=== PATIENT | male | born 1945 | race Two or more races ===

== ENCOUNTER 2025-02-03 10:01 | Inpatient (IN) | payer OTHER ==
[~2025-02-03] VITALS: Ht 170.2 cm; Wt 67.1 kg
[~2025-02-03 10:01] MED LIST: AMLO1TAB23 PO; FAMO20TA10 GT; GLIP10TA9 PO; LISI2.5T47 PO; MELO15TA29 PO; METF-370 PO; SILD100T PO; TURM500C3 OR
[2025-02-03] MEDS: ceFAZolin 2 GM/D5W50ml 50 ML IV ONE (10:05)
[2025-02-03] MEDS ORDERED: ETOMIDATE (2MG/ML) 20ML VIAL IV ONE (11:22)
[2025-02-03] MEDS: levoFLOXacin 500MG 100 ML IV ONE (11:57)
[2025-02-03] MEDS: TRANEXAMIC ACID 10 ML ONE ×2 (11:57→11:58)
[2025-02-03] MEDS ORDERED: HYDROmorphone HCL 2 MG/ML VL/or syr ONE (12:32)
[2025-02-03] MEDS ORDERED: fentaNYL CITRATE 100 MCG/2 ML VL ONE ×2 (12:32→15:56)
[2025-02-03] MEDS ORDERED: MIDAZOLAM HCL 2MG/2ML 2ml VIAL (1mg/ml) ONE (12:32)
[2025-02-03] MEDS ORDERED: fentaNYL CITRATE 5 ML ONE (12:32)
--- NOTE | 2025-02-03 12:41 | DVHHP2 ---
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 History of Present Illness Home Meds Reported Medications Sildenafil Citrate (Viagra) 100 Mg Tab, 100 MG PO PRN, TAB 01/30/25 Curcuma Longa (Turmeric) Extra (TURMERIC) 500 Mg Cap, 1500 MG OR BID, CAP 01/30/25 Lisinopril (Lisinopril) 2.5 Mg Tab, 1.5 MG PO DAILY, TAB 01/30/25 Meloxicam (Meloxicam) 15 Mg Tab, 15 MG PO DAILY, TAB 01/30/25 Amlodipine Besylate (Amlodipine Besylate) 10 Mg Tab, 10 MG PO DAILY, TAB 01/30/25 Famotidine (PEPCID TABLET) 20 Mg Tb, 20 MG GT DAILY, TAB 01/30/25 Metformin Hydrochloride (Metformin Hcl) 500 Mg Tab, 500 MG PO DAILY, TAB 01/30/25 Glipizide (Glipizide) 10 Mg Tab, 10 MG PO BID, TAB 01/30/25 Timing/Duration of Neck Pain: Getting worse Quality of Neck Pain: Aching, Burning, Cramping Associated Symptoms of Neck Pa: Muscle spasms Timing/Duration of Back Pain: Constant, Getting worse Back Pain Location: Lumbar spine Back Pain Radiation: Thigh area Method of Injury/Prior Factors: Unknown Modifying Factors for Back Isabela: None Associated Symptoms of Back Pa: Tingling in legs, Tingling in feet, Sensory loss, Motor loss Review of Systems Constitutional: No symptom reported Ears, Nose, & Throat: No symptom reported Eyes: No symptom reported Pulmonary/Respiratory: No symptom reported Cardiovascular: No symptom reported Gastrointestinal: No symptom reported Genitourinary: No symptom reported Musculoskeletal: Back pain, Muscle pain, Muscle stiffness Skin: No symptom reported Psychiatric: No symptom reported Endocrine: No symptom reported H&P Exam Vital Signs Vital Signs Date Time Temp Pulse Resp B/P (MAP) Pulse Ox O2 Delivery O2 Flow Rate FiO2 02/03/25 10:10 97.8 65 16 122/84 (97) 98 97.8 General Appeara: Well developed, Well nourished, Normal Appearance Head Exam: Normal inspection Neck Exam: Normal inspection, Non-tender, Normal alignment Eye Exam: bilateral eye Normal inspection, bilateral eye PERRL, bilateral eye EOMI Ear Exam: bilateral ear Auricle normal, bilateral ear Canal normal, bilateral ear TM normal Nasal Exam: Normal inspection Mouth: Normal Inspection Pulmonary/Respiratory: Normal inspection, Normal breath sounds, Chest non- tender, Lungs clear Cardiovascular/Chest: Normal inspection, Regular rate, Normal Rhythm Abdominal Exam: Normal bowel sounds, Soft, No tenderness, No hepatospenomegaly, No masses Back Exam: Muscle spasm, Vertebral tenderness Pelvic Exam: Not done, External exam normal, Bimanual exam normal, Speculum exam normal Male Genital Exam: Not done Shoulder Exam: Normal inspection, Non-tender, Normal ROM Elbow/Forearm Exam: Normal inspection, Non-tender, Normal ROM Wrist Exam: Normal inspection, Non-tender, Normal ROM Hand Exam: Normal inspection, Non-tender, Normal ROM Hip exam: Normal inspection, Non-tender, Normal range of motion Legs: bilateral leg non-tender, bilateral leg normal inspection, bilateral leg normal range of motion, bilateral leg no evidence of injury Knees: bilateral knee non-tender, bilateral knee normal inspection, bilateral knee normal range of motion, bilateral knee no evidence of injury Ankle Exam: bilateral ankle Normal inspection, bilateral ankle Non-tender, bilateral ankle Normal range of motion, bilateral ankle No evidence of injury Foot: bilateral foot non-tender, bilateral foot normal inspection, bilateral foot normal range of motion, bilateral foot no evidence of injury Tendon/ Neuro: Normal sensation, Normal motor function, Normal tendon functions, Motor deficit, Sensory deficit [employer] Exam: Normal hearing, Normal speech, PERRL Motor/Sensory: Sensory deficit, Weak motor strength RLE, Weak motor strength LLE Deep Tendon Ref: All intact Neuro/Mental St: Alert Appearance: Appropriate appearance Eye contact/ Speech: Cooperative Thoughts/Psych: Normal thought pattern Coordination/Gait: Abnormal gait Lymphatic: Normal inspection Labs/Xrays Labs Test 02/03/25 10:27 Range/Units POC Glucose 117 H 70-106 mg/dl Assessment/Plan Primary Diagnosis 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
[2025-02-03] MEDS ORDERED: PROPOFOL 10 MG/ML 20 ML IV ONE (12:49)
[2025-02-03] MEDS ORDERED: DexAMETHasone SOD PHOS 10MG/1ML VIAL INJ ONE (12:49)
[2025-02-03] MEDS: GELATIN 1 SPONGE SIZE 100 TOP ONE (15:50)
[2025-02-03] MEDS: D5W/SOD CHLO 0.9% 1,000 ML IV SCH (17:00)
[2025-02-03] MEDS ORDERED: NITROGLYCERIN 0.4 MG SL TAB SL PRN (17:00)
[2025-02-03] MEDS ORDERED: MORPHINE SULFATE INJ 2 MG/ml SYRG IV PRN (17:00)
[2025-02-03] MEDS: THROMBIN (BOVINE) 5000 UNIT SOL VIAL ONE (17:20)
--- NOTE | 2025-02-03 17:29 | DVHOP2 ---
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 These include but are not limited to complications of anesthesia, postoperative infection, incomplete relief of symptoms, recurrence of symptoms, damage to blood vessels, nerves and tendons, deep venous thrombosis, pulmonary embolism and possible need for repeat surgery in the future. Name of Procedure Performed see detailed note Procedure Details Procedure Details: Pre-op Diagnosis: Lumbar Degenerative Disk Disease and Lumbar Spinal Stenosis with L3/4 degenerative scoliosis and L4/5 spondylolisthesis causing Incapacitating back pain, radiculopathy and progressive neurologic deficit Post-op Diagnosis: Lumbar Degenerative Disk Disease and Lumbar Spinal Stenosis with L3/4 degenerative scoliosis and L4/5 spondylolisthesis causing Incapacitating back pain, radiculopathy and progressive neurologic deficit Procedure: Lumbar 5 laminectomy with Lumbar 5 foraminotomies and facetectomies to decompress central canal and Lumbar 5 nerve roots Lumbar 4 laminectomy with Lumbar 4 foraminotomies and facetectomies to decompress central canal and Lumbar 4 nerve roots Lumbar 3 laminectomy with Lumbar 3 foraminotomies and facetectomies to dec ompress central canal and Lumbar 4 nerve roots Lumbar 3 to 4 posterior spinal interbody fusion with PEEK cage Lumbar 3 to 5 posterior spinal intertransverse fusion with bone graft Lumbar 3 to 5 posterior spinal instrumentation with pedicle screws Local Bone Autograft For Fusion Allograft Bone Substitute (Bacterin) to augment Fusion Use of Demineralized Bone Matrix to Augment Fusion Microscope For Microdissection Surgeon: Micah Wilson MD Assist: ISABEL Perez Anesthesia: General Fluids and EBL: See anesthesia note Patient was seen in the Pre Anesthesia Care Unit (PACU) and the operative site was initialed by me. All questions were answered to the patients satisfaction and chart reviewed. The patient was taken to the operative room where pre-o perative antibiotics were given 30 minutes prior to incision. General anesthesia was induced and neuro-monitoring leads placed. Martel catheter was placed. The [facility]. While positioning, I made sure that the belly was free to allow proper expansion of the lungs. The hips were extended and all bony prominences padded. The shou lders were abducted 80 degree and the elbows flexed 100 degrees with no tension on the brachial plexus. I check the foot arterial pulses and they were palpable. The patient was prepped and draped and time out was taken at this time per usual protocol. At this time, the C-arm fluoroscope was brought in and was used to april the incision borders proximally and distally. Using a Number 10 Blade, an incision was made extending it proximally and distally per C arm april from the posterior spinous process of lumbar 4,5 down to the lumbo-dorsal fascia. All bleeding was controlled with electrocautery. Self-retaining retractors were placed. Electrocautery was then used to take down the lumbo- dorsal fascia, to free the muscle off the bone bilaterally. A Jatin retractor was placed over the posterior spinous process proximally and a lateral C-arm fluoroscope image was taken to insure we were at the correct level. Next, using bovie electro cautery, The deep fascia laterally to the facet joints was removed to expose the transverse processes of lumbar 3, 4 and 5 while taking care to avoid injuring the facet capsule at the proximal end of the incision. Next, the microscope was bought in for visualization and using a Luxell rongeur, the posterior spinous process of lumbar 3 and 4 and 5 bone were removed and the bone was saved for use as local autograft. I used alternating Kerison 2 mm and 3 mm rongeurs to perform central laminectomies lumbar 5 and 4 and 3 to decompress the central canal. Next using alternating Kerison 2mm and 3 mm rongeurs, the superior articular facets of lumbar 3, 4 and 5 were removed bilaterally to decompress the lateral recess (facetectomies) and then extended proximally to decompress the foramen bilaterally (foraminotomies). I used a ball tipped nerve probed to insure that the respective nerve roots were able to be mobilized 5mm in each direction were unimpeded in the lateral recess and foramen. Next I carefully inspected the dura to make sure no durotomy was visible and it was not. I retracted the right lumbar 5 nerve medially and used increasing size danie until the proper size prepared and then inserted a 9X28mm PEEK cage in to the disc space at L3/4 using C arm fluoroscopy. I covered the exposed dura with gelfoam soaked in thrombin and the microscope was wheeled away from the operative filed. The C-arm fluoroscope was brought in and perfect AP views of the lumbar 4 and 5 pedicles were obtained. I placed bilateral pedicle screws at these levels by: using a Lenke awl to make a airline pilot/first officer h ole, then a ball tip robe to make sure there was no pedicle breach, then a tap to prepare the track and a 6.5 mm diameter 45 mm length pedicle screw was placed bilaterally. This step to place bilateral pedicle screws was repeated up to the lumbar 3, 4 and 5 level. Next, the c-arm fluoroscope took an AP and lateral x-ray to ensure proper placement of the pedicle screws. Next, the neuro-stimulation probe was placed over the tip of each screw and each screw stimulated only after a current greater than 10 mA was delivered to the screw. Next , I took a Midas Jeffry Drill to decorticate the transverse process which were exposed and local bone graft, Bacterin allograft bone substitute and Demineralized bone matrix were placed along the inter transverse process intervals bilaterally (the fusion bed). Next a curved pedro sized to fit the pedicle screw interval was placed and secured to each pedicle screw using set screws, The set screws were tightened using a torque screwdriver (set to 10 N*M torque) to secure the pedro to the pedicle screws bilaterally. Final AP and lateral C arm fluoroscopic films were taken at this time. Next a 10 [place] diameter Hemovac drain was laced deep to the lumbo- dorsal fascia. The lumbo-dorsal fascia was closed with interrupted 0-Vicry sutures. The subcutaneous tissue was closed with interrupted 2-0 Vicryl sutures. The skin was closed with running 2-0 nylon suture. Sterile dressings were place. The pt. was turned supine onto the stretcher, extubated and taken to the recovery room in stable condition. cpt codes: 09309,36612,[id number] Condition Stable Disposition Still a Patient MICAH WILSON MD Feb 03, 2025 17:29
[2025-02-03] MEDS: LIDOCAINE W/ EPINEPHRINE 1% 20ML VIAL ONE (17:30)
[2025-02-03 17:50] VITALS: PULSE 90; RESP 17; O2SAT 98
[2025-02-03] MEDS: ONDANSETRON HCL 4 MG/2 ML VIAL IV ONE (18:15)
[2025-02-03] MEDS ORDERED: ePHEDrine SULFATE 50 MG/ML AMP IV PRN (18:15)
[2025-02-03] MEDS ORDERED: hydrALAZINE HCL 20 MG/ML VL IV PRN (18:15)
[2025-02-03] MEDS ORDERED: MORPHINE SULFATE 4 MG/ML SYR/VIAL IV PRN (18:15)
[2025-02-03] MEDS: HYDROmorphone HCL 2 MG/ML VL/or syr ONE (18:16)
[2025-02-03] MEDS: HYDROmorphone HCL 2 MG/ML VL/or syr IV PRN (18:18)
[2025-02-03] MEDS: MIDAZOLAM HCL 2MG/2ML 2ml VIAL (1mg/ml) ONE (18:24)
[2025-02-03] MEDS: MIDAZOLAM HCL 2MG/2ML 2ml VIAL (1mg/ml) IV PRN (18:35)
[2025-02-03] MEDS: ONDANSETRON HCL 4 MG/2 ML VIAL IV PRN (20:48)
[2025-02-03] MEDS: MORPHINE SULFATE 4 MG/ML SYR/VIAL IV PRN (20:53)
[2025-02-03 21:00] VITALS: BP 143/87; PULSE 97; RESP 18; TEMP 98; O2SAT 98
--- NOTE | 2025-02-03 21:06 | DVH ---
FLUOROSCOPY, OPERATING ROOM PROCEDURE REASON FOR EXAM: Lumbar fusion. FLUOROSCOPY TIME: 73.2 sec PEAK SKIN DOSE: 37.39 mGy FINDINGS: Fluoroscopy was provided for PRETTY TOURE fluoroscopic spot images are submitted to PACS. IMPRESSION: Intraoperative fluoroscopic assistance. Please refer to the operative report for a description of th e findings.
[2025-02-03] MEDS: DOCUSATE SOD 100 MG CAP PO SCH (21:18)
[2025-02-03] MEDS: CYCLOBENZAPRINE HCL 10 MG TAB PO SCH (21:19)
[2025-02-03] MEDS: HYDROcodone-ACET 10/325MG TAB PO PRN (21:19)
[2025-02-03] MEDS: ceFAZolin 1GM/50ML 50 ML IV SCH (21:20)
--- NOTE | 2025-02-03 22:01 | POSTOP ---
Post-Operative Note Post-Operative Note Preop Diagnosis Lumbar Degenerative Disk Disease and Lumbar Spinal Stenosis with L3/4 degenerative scoliosis and L4/5 spondylolisthesis causing Incapacitating back pain, radiculopathy and progressive neurologic deficit Postop Diagnosis: Lumbar Degenerative Disk Disease and Lumbar Spinal Stenosis with L3/4 degenerative scoliosis and L4/5 spondylolisthesis causing Incapacitating back pain, radiculopathy and progressive neurologic deficit Operation performed Lumbar 5 laminectomy with Lumbar 5 foraminotomies and facetectomies to decompress central canal and Lumbar 5 nerve roots Lumbar 4 laminectomy with Lumbar 4 foraminotomies and facetectomies to decompress central canal and Lumbar 4 nerve roots Lumbar 3 laminectomy with Lumbar 3 foraminotomies and facetectomies to decompress central canal and Lumbar 4 nerve roots Lumbar 3 to 4 posterior spinal interbody fusion with PEEK cage Lumbar 3 to 5 posterior spinal intertransverse fusion with bone graft Lumbar 3 to 5 posterior spinal instrumentation with pedicle screws Specimen none Anesthesia: General Anesthesiologist: DR Newton Blood Loss(fluid mgmt) See anesthesia record Tourniquet Time None Surgeon Dr Micah Wilson [employer] Chief Creative Officer Sherita Rivero RESERVATIONS MANAGER/WILDLAND FIRE FIGHTER Implant 6.5 x 45x 6 screws 70mm pedro x 2 set screws x 6 9mm interbody x 1 Complications & Mgmt none Additional Remarks -Follow up appointment: with Dr Wilson prescheduled appointment time that you receiving her preop visit [id number] [facility] [address] Gomez [address] [place] [id number] -Pain: - IV pain meds post op day 1, with PO supplementation, goal is to progress weaning off IV medications and control pain with PO only. morphine 1mg q 4 hours (PAIN 7-10) - P.O. analgesics:Tylenol 650MG (PAIN 1-3) [place] 10/325 mg (PAIN 4-6) - Muscle relaxers scheduled administration. This is a beneficial medications for the incisional pain as it is mostly related to muscle spasms. Flexeril 10 mg TID - Cepacol throat lozenges as needed for sore throat -Antibiotics Operative recommendations: -Postoperative dose:-Post operative antibiotics cefazolin 1 g IV piggyback every 8 hours x 48 hours total of 6 doses -DVT PPX: -Hold all chemical DVT/ blood thinners for 14 days postoperatively -use mechanical DVT PPX such as SCD's, ambulation -Activity: -Pending PT evaluation and patients progression -Sit at side of bed for meals -Goal: Ambulate independently and safely (may use assistive devices if needed) -Medical Therapy goals: -Afebrile- Patient may develop a expected post operative fever by day 2-3, this may not be accompanied with a elevation in WBC. if fever develops: Acetaminophen for fever. Albuterol nebulizer Tx every 12 hours for 24 hours to facilitate adequate lung expansion and prevent development of atelectasis. -Euglycemic: bloods sugars under 130mmol/L for optimal healing -Normotensive: Avoid events of hypertension. This helps to keep post operative healing intact and avoids destabilization of beneficial hemostatic coagulation. -Lumbar: -If patient is comfortable encouraged the patient to lay on their side to facilitate wound healing -Drains: -Hemovac drains: These will be to full compression unless otherwise ordered. Please record and document output AND characteristic of fluid present independently EVERY 6 hours more often as needed. if there in no output indicate this by documenting 0ml. If output is greater than 100 ml in one hour of piedad blood call provider. These drains will be removed once the drainage is at a acceptable level (generally less than 100ml in 24 hours) -Bety dressing: This will stay in place and will be removed at the patients follow up visit. Nursing is to assess the seal and power source. The seal should be intact and the power source should have a green flashing light indicating it is functioning well. Batteries can last up to 14 days. If a leak develops the dressing edges can be reinforced with a Tegaderm dressing to reestablish intact seal. The Bety dressing is NOT a wound vac. This does not get changed, it does not need home health management. -Record output independently, drain 1. Is a deep drain and drain 2. Is a superficial drain. Wound drainage is described by type, color, amount, and odor. Drainage can be 1 Serous: Clear and thin, may be present in healing healthy wound. 2 Serosanguineous containing blood may also be present and healthy healing wound 3. Sanguinous primarily blood 4. Purulent this is thick, white, and pus like. It may be indicated to give of a infection and should constitute a call to the provider immediately with the plan that the sample should be cultured. -Martel: discontinued in OR -Dressings Take care not to disrupt the BETY dressing seal. If there is a break in the seal it can be trouble shot with a Tegaderm dressing. -Dressing to Hemovac drains may be changed once the drains have been removed by the provider. -Bowel management: -Colace 100mg bid -Diet: -Clear liquid diet and advance as patient tolerates within dietary limitations ( example: diabetic, Cardiac) -Incentive Spirometer: -10 x hour while awake, RN please educate and observe repeat demonstration, have IS at bedside POD #1 -X-rays: - none indicated at this time -Consults: -Physical Therapy evaluation, treatment recommendations, and discharge recommendations Call with questions Chase Rivero [facility] Orth[facility]edic Spine Surgery nurse practitioner For Dr Clarice Wilson Patient was examined, chart reviewed, labs evaluated, and diagnostic studies and findings analyzed. Case was discussed with Dr. Micah Wilson who formulated the plan of care. This medical document was created using an electronic medical record system with [employer] dictation system. Although this document has been carefully reviewed, there might still be some phonetic and typographical errors. These areas are purely typographical due to imperfections of the software programs, and do not reflect any compromise in the patient's medical care. Date 02/03/25 Time 22:00 SHERITA RIVERO NP Feb 03, 2025 22:01
[2025-02-03] MEDS ORDERED: THROAT LOZENGES(CEPASTAT) MT PRN (22:15)
[2025-02-03 23:22] VITALS: BP 143/87; PULSE 97; RESP 18; TEMP 97; O2SAT 98
[2025-02-04] VITALS (7 sets, daily range): BP systolic 139–162; BP diastolic 80–99; PULSE 89–102; RESP 18; TEMP 97.6–98.3; O2SAT 93–98
[2025-02-04] MEDS: metFORMIN HYDROCHLORIDE 500 MG TAB PO SCH (08:33)
[2025-02-04] MEDS: FAMOTIDINE 20 MG TAB PO SCH (09:31)
[2025-02-04] MEDS: LISINOPRIL 5 MG TAB PO ONE (11:55)
[2025-02-04] MEDS: amLODIPine BESYLATE 5 MG TAB PO ONE (11:56)
[2025-02-04] MEDS ORDERED: DEXTROSE (50%) 50ML SYRG IV PRN (13:00)
[2025-02-04] MEDS: MORPHINE SULFATE INJ 2 MG/ml SYRG IV ONE (13:00)
--- NOTE | 2025-02-04 13:38 | DVHPN2 ---
Progress Note - Surgical Date Seen: Feb 04, 2025 Post op day Post op day: 1 Subjective Patient reports: No new complaints, Feels better Review of Systems: HEENT:Normal, CVS:Normal, RESPIRATORY:Normal, GI:Normal, :Normal, MSK:Normal, NEURO:Normal Objective Vital signs Vital Sign Date Time Temp Pulse Resp B/P (MAP) Pulse Ox O2 Delivery O2 Flow Rate FiO2 02/04/25 11:56 164/90 02/04/25 10:59 86 18 02/04/25 09:00 97.8 98 97.8 02/04/25 07:30 Room Air* 0 21 Total Intake and Output 02/03/25 02/03/25 02/04/25 15:00 23:00 07:00 Intake Total 125 ml 50 ml 200 ml Output Total 100 ml 800 ml Balance 125 ml -50 ml -600 ml Medications Current Medications Medications Dose Ordered Sig/Tatum Route Start Time Stop Time Status Last Admin Dose Admin Ondansetron HCl 4 mg Q4HP PRN IV 02/03/25 17:00 02/04/25 05:38 4 MG Acetaminophen 650 mg Q6HP PRN PO 02/03/25 17:00 Acetaminophen/ Hydrocodone Bitart 1 tab Q6HP PRN PO 02/03/25 17:00 02/04/25 03:26 1 TAB Cyclobenzaprine HCl 10 mg TID PO 02/03/25 22:00 02/04/25 06:30 10 MG Docusate Sodium 100 mg BID PO 02/03/25 22:00 02/03/25 21:18 100 MG Cefazolin Sodium 50 ml @ 100 mls/hr Q8HR IV 02/03/25 22:00 02/05/25 14:29 02/04/25 05:38 100 MLS/HR Nitroglycerin 0.4 mg Q5MINP PRN SL 02/03/25 17:00 Morphine Sulfate 2 mg Q30M PRN IV 02/03/25 17:00 Famotidine 20 mg DAILY PO 02/04/25 10:00 02/04/25 09:31 20 MG Metformin HCl 500 mg DAILY PO 02/04/25 10:00 Throat Lozenges 1 daquan Q2HP PRN MT 02/03/25 22:15 Amlodipine Besylate 10 mg DAILY PO 02/05/25 10:00 Lisinopril 2.5 mg DAILY PO 02/05/25 10:00 Morphine Sulfate 2 mg Q4HP PRN IV 02/04/25 17:00 Diagnostic Test (Pha) 1 strip ACHS 02/04/25 17:00 Insulin Human Regular ACHS SC 02/04/25 17:00 Dextrose 50 ml UD PRN IV 02/04/25 13:00 Examination: GENERAL:Normal, HEENT:Normal, NECK:Normal, LUNGS:Normal, CVS:Normal, ABDOMEN:Normal, MSK:Normal (patient able to ambulate with PT today, did well, feels good), SKIN:Normal (drains in place x 2, BETY intact), NEURO:Normal (verbalized improvement to BLE, pain from surgical site), :Normal Problem List/Assessment/Plan Problems: (1) Postoperative pain after spinal surgery (2) Muscle spasm of back Assessment and Plan Drain output #1 over 200 ml since surgery #2 75 ml since surgery bety intact. patient experiencing expected post operative pain adjusted medications. patient is progressing well, will reasesss drain output tomorrow. hope to DC patient on Sunday -Pain: - IV pain meds post op day 1, with PO supplementation, goal is to progress weaning off IV medications and control pain with PO only. morphine 2mg q 4 hours (PAIN 7-10), added one time dose now. - P.O. analgesics:Tylenol 650MG (PAIN 1-3) [place] 10/325 mg (PAIN 4-6) - Muscle relaxers scheduled administration. This is a beneficial medications for the incisional pain as it is mostly related to muscle spasms. Flexeril 10 mg TID - Cepacol throat lozenges as needed for sore throat -Antibiotics Operative recommendations: -Postoperative dose:-Post operative antibiotics cefazolin 1 g IV piggyback every 8 hours x 48 hours total of 6 doses -DVT PPX: -Hold all chemical DVT/ blood thinners for 14 days postoperatively -use mechanical DVT PPX such as SCD's, ambulation -Activity: -Pending PT evaluation and patients progression -Sit at side of bed for meals -Goal: Ambulate independently and safely (may use assistive devices if needed) -Medical Therapy goals: -Afebrile- Patient may develop a expected post operative fever by day 2-3, this may not be accompanied with a elevation in WBC. if fever develops: Acetaminophen for fever. Albuterol nebulizer Tx every 12 hours for 24 hours to facilitate adequate lung expansion and prevent development of atelectasis. -Euglycemic: bloods sugars under 130mmol/L for optimal healing -Normotensive: Avoid events of hypertension. This helps to keep post operative healing intact and avoids destabilization of beneficial hemostatic coagulation. -Lumbar: -If patient is comfortable encouraged the patient to lay on their side to facilitate wound healing -Drains: -Hemovac drains: These will be to full compression unless otherwise ordered. Please record and document output AND characteristic of fluid present independently EVERY 6 hours more often as needed. if there in no output indicate this by documenting 0ml. If output is greater than 100 ml in one hour of piedad blood call provider. These drains will be removed once the drainage is at a acceptable level (generally less than 100ml in 24 hours) -Bety dressing: This will stay in place and will be removed at the patients follow up visit. Nursing is to assess the seal and power source. The seal should be intact and the power source should have a green flashing light indicating it is functioning well. Batteries can last up to 14 days. If a leak develops the dressing edges can be reinforced with a Tegaderm dressing to reestablish intact seal. The Bety dressing is NOT a wound vac. This does not get changed, it does not need home health management. -Record output independently, drain 1. Is a deep drain and drain 2. Is a superficial drain. Wound drainage is described by type, color, amount, and odor. Drainage can be 1 Serous: Clear and thin, may be present in healing healthy wound. 2 Serosanguineous containing blood may also be present and healthy healing wound 3. Sanguinous primarily blood 4. Purulent this is thick, white, and pus like. It may be indicated to give of a infection and should constitute a call to the provider immediately with the plan that the sample should be cultured. -Martel: discontinued in OR -Dressings Take care not to disrupt the BETY dressing seal. If there is a break in the seal it can be trouble shot with a Tegaderm dressing. -Dressing to Hemovac drains may be changed once the drains have been removed b y the provider. -Bowel management: -Colace 100mg bid -Diet: -Clear liquid diet and advance as patient tolerates within dietary limitations ( example: diabetic, Cardiac) -Incentive Spirometer: -10 x hour while awake, RN please educate and observe repeat demonstration, have IS at bedside POD #1 -X-rays: - none indicated at this time -Consults: -Physical Therapy evaluation, treatment recommendations, and discharge recommendations Call with questions Chase Rivero ACNP- Orthopaedic Spine Surgery nurse practitioner For Dr Clarice Wilson Patient was examined, chart reviewed, labs evaluated, and diagnostic studies and findings analyzed. Case was discussed with Dr. Micah Wilson who formulated the plan of care. This medical document was created using an electronic medical record system with [employer] dictation system. Although this document has been carefully reviewed, there might still be some phonetic and typographical errors. These areas are purely typographical due to imperfections of the software programs, and do not reflect any compromise in the patient's medical care. My Orders My Orders Orders - YUDI RIVERO NP Procedure Category Date Status Time Throat Lozenges PHA 02/03/25 In Process (Cepastat Lozenges) 22:15 Amlodipine Tablet PHA 02/05/25 In Process (Norvasc Tablet) 10:00 Lisinopril Tablet PHA 02/05/25 In Process (Zestril Tablet) 10:00 Morphine Sulfate PHA 02/04/25 In Process Injection 17:00 Glucose Blood PHA 02/04/25 In Process (Accu-Chek Comfort 17:00 Insulin R (Human) PHA 02/04/25 In Process (Insulin R) 17:00 Dextrose 50% Syringe PHA 02/04/25 In Process 13:00 Consistent DIET 02/04/25 Transmitted Carb(Ccho)Diabetes Lunch Plan discussed with Plan discussed with: Patient, Other (Ede HERNANDEZ) Visit Coding Surgery Date of Service if different f: Feb 03, 2025 Billing Provider: YUDI RIVERO NP Surgery Visit Codes: NOT BILLABLE YUDI RIVERO NP Feb 04, 2025 13:38
--- NOTE | 2025-02-04 14:23 | DVHINCON2 ---
Date Seen: Feb 04, 2025 Referring Physician Orthopedic spine surgery. Reason for Consultation Medical management. History of Present Illness 79-year-old male with known history of hypertension, diabetes mellitus type 2, GERD, chronic lumbar back pain who initially presented to the hospital for elective procedure for lumbar spine stenosis/lumbar radiculopathy. Patient is currently status post lumbar spinal canal decompression surgery at L3-4-5. Patient denies any chest pain shortness of breath. Past Medical History Hypertension Diabetes mellitus type 2 GERD Chronic lumbar back pain Past Surgical History L3-4-5 lumbar spinal decompression surgery. Family History: FH: cancer G8 MOTHER Allergies: Coded Allergies: NO KNOWN ALLERGIES (Unverified , 01/30/25) Home Meds Reported Medications Sildenafil Citrate (Viagra) 100 Mg Tab, 100 MG PO PRN, TAB 01/30/25 Curcuma Longa (Turmeric) Extra (TURMERIC) 500 Mg Cap, 1500 MG OR BID, CAP 01/30/25 Lisinopril (Lisinopril) 2.5 Mg Tab, 1.5 MG PO DAILY, TAB 01/30/25 Meloxicam (Meloxicam) 15 Mg Tab, 15 MG PO DAILY, TAB 01/30/25 Amlodipine Besylate (Amlodipine Besylate) 10 Mg Tab, 10 MG PO DAILY, TAB 01/30/25 Famotidine (PEPCID TABLET) 20 Mg Tb, 20 MG GT DAILY, TAB 01/30/25 Metformin Hydrochloride (Metformin Hcl) 500 Mg Tab, 500 MG PO DAILY, TAB 01/30/25 Glipizide (Glipizide) 10 Mg Tab, 10 MG PO BID, TAB 01/30/25 Current Medications Current Medications Medications (Trade) Dose Ordered Sig/Tatum Route PRN Reason Start Time Stop Time Status Last Admin Dextrose/Sodium Chloride 1,000 ml @ 100 mls/hr Q10H IV 02/03/25 17:00 02/04/25 12:59 DC Ondansetron HCl (Zofran) 4 mg Q4HP PRN IV NAUSEA / VOMITING 02/03/25 17:00 02/04/25 05:38 Acetaminophen (Tylenol Tablet) 650 mg Q6HP PRN PO MILD PAIN (1-3 PAIN SCALE) 02/03/25 17:00 Acetaminophen/ Hydrocodone Bitart ([place] 10/325MG Tab) 1 tab Q6HP PRN PO MODERATE PAIN (4-6 PAIN SCALE) 02/03/25 17:00 02/04/25 13:43 DC 02/04/25 03:26 Morphine Sulfate 1 mg Q4HP PRN IV SEVERE PAIN (7-10 PAIN SCALE) 02/03/25 17:00 02/04/25 12:59 DC 02/04/25 09:32 Cyclobenzaprine HCl (Flexeril Tablet) 10 mg TID PO 02/03/25 22:00 02/04/25 06:30 Docusate Sodium (Colace Capsule) 100 mg BID PO 02/03/25 22:00 02/03/25 21:18 Cefazolin Sodium 50 ml @ 100 mls/hr Q8HR IV 02/03/25 22:00 02/05/25 14:29 02/04/25 05:38 Nitroglycerin (Ntrostat Sublingual) 0.4 mg Q5MINP PRN SL FOR CHEST PAIN 02/03/25 17:00 Morphine Sulfate 2 mg Q30M PRN IV FOR CHEST PAIN 02/03/25 17:00 Famotidine (Pepcid Tablet) 20 mg DAILY PO 02/04/25 10:00 02/04/25 09:31 Metformin HCl (Glucophage) 500 mg DAILY PO 02/04/25 10:00 Hydralazine HCl (Apresoline Injection) 5 mg Q10M PRN IV SBP>160 02/03/25 18:15 02/03/25 19:06 DC Morphine Sulfate 2 mg Q2HPRN PRN IV BREAKTHROUGH PAIN (7-10) 02/03/25 18:15 02/03/25 18:23 DC Midazolam HCl (Versed Injection) 1 mg Q10M PRN IV ANXIETY 02/03/25 18:15 02/03/25 18:56 DC 02/03/25 18:59 Ephedrine Sulfate (ePHEDrine SULFATE) 10 mg Q10M PRN IV SBP LESS THAN 90 02/03/25 18:15 02/03/25 18:56 DC Hydromorphone HCl (Dilaudid Injection) 0.5 mg Q10M PRN IV SEVERE PAIN (7-10 PAIN SCALE) 02/03/25 18:15 02/03/25 18:56 DC 02/03/25 19:31 Throat Lozenges (Cepastat Lozenges) 1 daquan Q2HP PRN MT FOR SORE THROAT 02/03/25 22:15 Amlodipine Besylate (Norvasc Tablet) 10 mg DAILY PO 02/05/25 10:00 Lisinopril (Zestril Tablet) 2.5 mg DAILY PO 02/05/25 10:00 Morphine Sulfate 2 mg Q4HP PRN IV SEVERE PAIN (7-10 PAIN SCALE) 02/04/25 17:00 Diagnostic Test (Pha) (Accu-Chek Comfort Curve T) 1 strip ACHS 02/04/25 17:00 Insulin Human Regular (InsuLIN R) ACHS SC 02/04/25 17:00 Dextrose 50 ml UD PRN IV Blood Sugar LESS THAN 60 02/04/25 13:00 Acetaminophen/ Hydrocodone Bitart ([place] 10/325MG Tab) 1 tab Q4HP PRN PO MODERATE PAIN (4-6 PAIN SCALE) 02/04/25 13:45 Review of Systems Twelve review of system are negative besides mentioned above. Vital Signs Vital Signs Date Time Temp Pulse Resp B/P (MAP) Pulse Ox O2 Delivery O2 Flow Rate FiO2 02/04/25 11:56 164/90 02/04/25 10:59 86 18 02/04/25 09:00 97.8 98 97.8 02/04/25 07:30 Room Air* 0 21 Physical Exam HEENT pupils are reactive Neck is supple CV is S1-S2 regular rate and rhythm Respiratory are clear GI positive bowel sound Extremity no edema [employer]OOK no motor deficit. Labs/Diagnostic Data Labs Test 02/03/25 10:27 Range/Units POC Glucose 117 H 70-106 mg/dl Assessment 79-year-old male with a known history of hypertension, diabetes mellitus type 2, GERD, chronic lumbar back pain is here for lumbar spine surgery. 1. Hypertension controlled 2. Diabetes mellitus type 2 3. GERD 4. Lumbar radiculopathy status post L3-4-5 lumbar spinal canal decompression surgery. -resume home medication, DVT GI prophylaxis -pain meds as needed-. -discharge plan per orthopedic spine surgery. Plan discussed with: Patient Date of Service: Feb 04, 2025 Billing Provider: JUAN ANTONIO CROCKETT MD Common Visit Codes: NOT BILLABLE JUAN ANTONIO CROCKETT MD Feb 04, 2025 14:23
[2025-02-04] MEDS: MORPHINE SULFATE 4 MG/ML SYR/VIAL IV PRN (14:26)
[2025-02-04] MEDS: ACCU-CHEK COMFORT CURVE STRIP VI SCH (17:30)
[2025-02-04] MEDS: InsuLIN REG 1unit/0.01ml Soln (100units/ml) SC SCH (17:31)
[2025-02-04] MEDS: HYDROcodone-ACET 10/325MG TAB PO PRN (17:44)
[2025-02-05] VITALS (8 sets, daily range): BP systolic 128–148; BP diastolic 71–93; PULSE 87–104; RESP 17–19; TEMP 97.9–98.4; O2SAT 95–99
[2025-02-05 06:36] LABS: Basophils # (auto) 0 10 ^3/uL (0-0.2); Basophils % (auto) 0.2 % (0.0-2.0); Eosinophils # (auto) 0 10 ^3/uL (0-0.8); Eosinophils % (auto) 0.4 % (0.0-7.0); Hematocrit 38.1 % (41.0-53.0); Hemoglobin 13.1 g/dL (13.5-17.5); Lymphocytes # (auto) 1.2 10 ^3/uL (0.4-5.4); Lymphocytes % (auto) 11.9 % (10.0-50.0); Mean Corpuscular Hemoglobin 31.6 pg (28.0-32.0); Mean Corpuscular Hgb Conc. 34.4 g/dL (32.0-36.0); Mean Corpuscular Volume 91.7 fL (80.0-100.0); Monocytes # (auto) 0.8 10 ^3/uL (0-1.3); Monocytes % (auto) 8.3 % (0.0-12.0); Neutrophils # (auto) 7.9 10 ^3/uL (1.6-8.6); Neutrophils % (auto) 79.2 % (37.0-80.0); Platelet Count (auto) 214 10^3/uL (140-450); Red Blood Cells 4.16 10^6/uL (4.5-5.90); Red Cell Distribution Width 13.6 % (11.8-14.3)
[2025-02-05 06:39] LABS: Chloride 104 mmol/L (98-107); Potassium 3.8 mmol/L (3.5-5.1); Sodium 136 mmol/L (136-145)
[2025-02-05 06:40] LABS: Anion Gap 7 (5-15); Carbon Dioxide 25 mmol/L (20-31)
[2025-02-05 06:45] LABS: BUN/Creatinine Ratio 14.3 (10.0-20.0); Blood Urea Nitrogen 10 mg/dL (9-23)
[2025-02-05 06:51] LABS: Glucose 171 mg/dL (74-106)
[2025-02-05] MEDS: amLODIPine BESYLATE 5 MG TAB PO SCH (08:32)
[2025-02-05] MEDS: LISINOPRIL 5 MG TAB PO SCH (08:32)
[2025-02-05] MEDS ORDERED: ENOXAPARIN SOD 100 MG/1 ML SYRINGE SC ONE (12:45)
[2025-02-05] MEDS: ENOXAPARIN SOD 80 MG/0.8ML SYRINGE SC ONE (13:26)
--- NOTE | 2025-02-05 13:50 | DVHPN2 ---
Progress Note - Surgical Date Seen: Feb 05, 2025 Post op day Post op day: 2 Subjective Patient reports: No new complaints, Feels better Review of Systems: HEENT:Normal, CVS:Normal, RESPIRATORY:Normal, GI:Normal, :Normal, MSK:Normal, NEURO:Normal (prior pre op sumptoms) Objective Vital signs Vital Sign Date Time Temp Pulse Resp B/P (MAP) Pulse Ox O2 Delivery O2 Flow Rate FiO2 02/05/25 12:55 96 19 148/85 02/05/25 09:24 97.9 99 97.9 02/05/25 08:00 Room Air* 0 21 Total Intake and Output 02/04/25 02/04/25 02/05/25 15:00 23:00 07:00 Intake Total 50 ml 490 ml 740 ml Output Total 800 ml 920 ml Balance 50 ml -310 ml -180 ml Medications Current Medications Medications Dose Ordered Sig/Tatum Route Start Time Stop Time Status Last Admin Dose Admin Ondansetron HCl 4 mg Q4HP PRN IV 02/03/25 17:00 02/04/25 05:38 4 MG Acetaminophen 650 mg Q6HP PRN PO 02/03/25 17:00 Cyclobenzaprine HCl 10 mg TID PO 02/03/25 22:00 02/05/25 13:25 10 MG Docusate Sodium 100 mg BID PO 02/03/25 22:00 02/05/25 08:31 100 MG Cefazolin Sodium 50 ml @ 100 mls/hr Q8HR IV 02/03/25 22:00 02/05/25 14:29 02/05/25 13:25 100 MLS/HR Nitroglycerin 0.4 mg Q5MINP PRN SL 02/03/25 17:00 Morphine Sulfate 2 mg Q30M PRN IV 02/03/25 17:00 Famotidine 20 mg DAILY PO 02/04/25 10:00 02/05/25 08:31 20 MG Metformin HCl 500 mg DAILY PO 02/04/25 10:00 Throat Lozenges 1 daquan Q2HP PRN MT 02/03/25 22:15 Amlodipine Besylate 10 mg DAILY PO 02/05/25 10:00 02/05/25 08:32 10 MG Lisinopril 2.5 mg DAILY PO 02/05/25 10:00 02/05/25 08:32 2.5 MG Morphine Sulfate 2 mg Q4HP PRN IV 02/04/25 17:00 02/05/25 08:33 2 MG Diagnostic Test (Pha) 1 strip ACHS 02/04/25 17:00 02/05/25 12:01 1 STRIP Insulin Human Regular ACHS SC 02/04/25 17:00 02/05/25 12:02 4 UNITS Dextrose 50 ml UD PRN IV 02/04/25 13:00 Acetaminophen/ Hydrocodone Bitart 1 tab Q4HP PRN PO 02/04/25 13:45 02/04/25 22:09 1 TAB Magnesium Sulfate/ Dextrose 100 ml @ 100 mls/hr Q1HR IV 02/05/25 13:00 02/05/25 14:59 Enoxaparin Sodium 70 mg Q12HR SC 02/05/25 22:00 Laboratory Laboratory Tests 02/05/25 05:29 Test 02/05/25 05:29 Range/Units Serum Glucose 171 H 74-106 mg/dL Examination: GENERAL:Normal, HEENT:Normal, NECK:Normal, LUNGS:Normal, CVS:Abnormal (patient has developed a-fib which seems to tbe intermittent. vno co CP, sob), MSK:Normal (up working with PT), SKIN:Normal (bety in place drains intact ), NEURO:Normal, :Normal Problem List/Assessment/Plan Problems: (1) Muscle spasm of back (2) Postoperative pain after spinal surgery Assessment and Plan Drain output #1 over 200 ml out in past 24 hours #2 50 ml in past 24 hours Drain #2 DC'd today bety intact. patient experiencing expected post operative pain patient stated preoperative nerve pain has greatly improved. patient is progressing well, will reassesses drain output tomorrow. hope to DC patient on Sunday -Pain: - IV pain meds post op day 1, with PO supplementation, goal is to progress weaning off IV medications and control pain with PO only. morphine 2mg q 4 hours (PAIN 7-10), added one time dose now. - P.O. analgesics:Tylenol 650MG (PAIN 1-3) [place] 10/325 mg (PAIN 4-6) - Muscle relaxers scheduled administration. This is a beneficial medications for the incisional pain as it is mostly related to muscle spasms. Flexeril 10 mg TID - Cepacol throat lozenges as needed for sore throat -Antibiotics Operative recommendations: -Postoperative dose:-Post operative antibiotics cefazolin 1 g IV piggyback every 8 hours x 48 hours total of 6 doses -DVT PPX: Lovenox started due to new onset a -fib -Activity: -pt workinf with PT improving -Sit at side of bed for meals -Goal: Ambulate independently and safely (may use assistive devices if needed) -Medical Therapy goals: -Afebrile- Patient may develop a expected post operative fever by day 2-3, this may not be accompanied with a elevation in WBC. if fever develops: Acetaminophen for fever. Albuterol nebulizer Tx every 12 hours for 24 hours to facilitate adequate lung expansion and prevent development of atelectasis. -Euglycemic: bloods sugars under 130mmol/L for optimal healing -Normotensive: Avoid events of hypertension. This helps to keep post operative healing intact and avoids destabilization of beneficial hemostatic coagulation. -Lumbar: -If patient is comfortable encouraged the patient to lay on their side to facilitate wound healing -Drains: -Hemovac drains: These will be to full compression unless otherwise ordered. Please record and document output AND characteristic of fluid present independently EVERY 6 hours more often as needed. if there in no output indicate this by documenting 0ml. If output is greater than 100 ml in one hour of piedad blood call provider. These drains will be removed once the drainage is at a acceptable level (generally less than 100ml in 24 hours) -Bety dressing: This will stay in place and will be removed at the patients follow up visit. Nursing is to assess the seal and power source. The seal should be intact and the power source should have a green flashing light indicating it is functioning well. Batteries can last up to 14 days. If a leak develops the dressing edges can be reinforced with a Tegaderm dressing to reestablish intact seal. The Bety dressing is NOT a wound vac. This does not get changed, it does not need home health management. -Record output independently, drain 1. Is a deep drain. Wound drainage is described by type, color, amount, and odor. Drainage can be 1 Serous: Clear and thin, may be present in healing healthy wound. 2 Serosanguineous containing blood may also be present and healthy healing wound 3. Sanguinous primarily blood 4. Purulent this is thick, white, and pus like. It may be indicated to give of a infection and should constitute a call to the provider immediately with the plan that the sample should be cultured. -Martel: discontinued in OR -Dressings Take care not to disrupt the BETY dressing seal. If there is a break in the seal it can be trouble shot with a Tegaderm dressing. -Dressing to Hemovac drains may be changed once the drains have been removed by the provider. -Bowel management: -Colace 100mg bid -Diet: -Clear liquid diet and advance as patient tolerates within dietary limitations ( example: diabetic, Cardiac) -Incentive Spirometer: -10 x hour while awake, RN please educate and observe repeat demonstration, have IS at bedside POD #1 -X-rays: - none indicated at this time -Consults: -Physical Therapy evaluation, treatment recommendations, and discharge recommendations Call with questions Chase Rivero ACNP- Orthopaedic Spine Surgery nurse practitioner For Dr Clarice Wilson Patient was examined, chart reviewed, labs evaluated, and diagnostic studies and findings analyzed. Case was discussed with Dr. Micah Wilson who formulated the plan of care. This medical document was created using an electronic medical record system with [employer] dictation system. Although this document has been carefully reviewed, there might still be some phonetic and typographical errors. These areas are purely typographical due to imperfections of the software programs, and do not reflect any compromise in the patient's medical care. Plan discussed with Plan discussed with: Patient, Other (Ede HERNANDEZ) Visit Coding Surgery Date of Service if different f: Feb 03, 2025 Billing Provider: YUDI RIVERO NP Surgery Visit Codes: NOT BILLABLE YUDI RIVERO NP Feb 05, 2025 13:50
[2025-02-05] MEDS: MAGNESIUM SULFATE 1GM/100ML 100 ML IV SCH (14:16)
--- NOTE | 2025-02-05 15:45 | DVHPN2 ---
Subjective Patient is currently getting 2D echo, denies any chest pain shortness of breath. Changes from previous H/P or p: Changes (Patient went into AFib with RVR yesterday, started on therapeutic Lovenox and beta catrina.) Objective Vitals Vital Signs Date Time Temp Pulse Resp B/P (MAP) Pulse Ox O2 Delivery O2 Flow Rate FiO2 02/05/25 13:00 98.1 96 19 148/85 (106) 96 98.1 02/05/25 08:00 Room Air* 0 21 Intake/Output Intake and Output 02/05/25 07:00 Intake Total 1280 ml Output Total 1720 ml Balance -440 ml Intake Oral 1180 ml IV Total 100 ml Output Urine Total 1475 ml Drainage Total 245 ml Exam HEENT pupils are reactive Neck is supple CV is S1-S2 irregular irregular rate and rhythm between [id number] Respiratory bilateral clear GI positive bowel sound Extremity no edema [employer] no motor deficit Medications Current Medications Medications Dose Ordered Sig/Tatum Route Start Time Stop Time Status Last Admin Dose Admin Ondansetron HCl 4 mg Q4HP PRN IV 02/03/25 17:00 02/04/25 05:38 4 MG Acetaminophen 650 mg Q6HP PRN PO 02/03/25 17:00 Cyclobenzaprine HCl 10 mg TID PO 02/03/25 22:00 02/05/25 13:25 10 MG Docusate Sodium 100 mg BID PO 02/03/25 22:00 02/05/25 08:31 100 MG Nitroglycerin 0.4 mg Q5MINP PRN SL 02/03/25 17:00 Morphine Sulfate 2 mg Q30M PRN IV 02/03/25 17:00 Famotidine 20 mg DAILY PO 02/04/25 10:00 02/05/25 08:31 20 MG Metformin HCl 500 mg DAILY PO 02/04/25 10:00 Throat Lozenges 1 daquan Q2HP PRN MT 02/03/25 22:15 Amlodipine Besylate 10 mg DAILY PO 02/05/25 10:00 02/05/25 08:32 10 MG Lisinopril 2.5 mg DAILY PO 02/05/25 10:00 02/05/25 08:32 2.5 MG Morphine Sulfate 2 mg Q4HP PRN IV 02/04/25 17:00 02/05/25 08:33 2 MG Diagnostic Test (Pha) 1 strip ACHS 02/04/25 17:00 02/05/25 12:01 1 STRIP Insulin Human Regular ACHS SC 02/04/25 17:00 02/05/25 12:02 4 UNITS Dextrose 50 ml UD PRN IV 02/04/25 13:00 Acetaminophen/ Hydrocodone Bitart 1 tab Q4HP PRN PO 02/04/25 13:45 02/04/25 22:09 1 TAB Enoxaparin Sodium 70 mg Q12HR SC 02/05/25 22:00 Metoprolol Tartrate 25 mg BID PO 02/05/25 22:00 Laboratory Results Laboratory Tests 02/05/25 05:29 Chemistry Test 02/05/25 05:29 Calcium Level 10.0 mg/dL (8.7-10.4) Magnesium Level 1.8 mg/dL (1.6-2.6) Assessment/Plan Assessment/Plan 79-year-old male with a known history of hypertension, diabetes mellitus type 2, GERD, chronic lumbar back pain is here for lumbar spine surgery. 1. AFib with RVR 2. Diabetes mellitus type 2 3. GERD 4. Lumbar radiculopathy status post L3-4-5 lumbar spinal canal decompression surgery 5. Hypertension -add beta catrina, therapeutic Lovenox, risks benefits and alternatives of therapeutic Lovenox including life-threatening bleeding disability explained to the patient in detail who understand verbalized understanding and agreeable to plan. -2D echo, cardiology consultation. Therapeutic Lovenox for primary prevention of acute CVA. Plan discussed with: Other My Orders Orders - JUAN ANTONIO CROCKETT MD Procedure Category Date Status Time Electrocardigram EKG 02/05/25 Logged 11:22 * Cardiology Consult CONS 02/05/25 Transmitted 12:41 Enoxaparin Sodium PHA 02/05/25 In Process (Lovenox) 22:00 Metoprolol Tartrate PHA 02/05/25 In Process Tablet (Lopressor Ta 22:00 Date of Service: Feb 05, 2025 Billing Provider: JUAN ANTONIO CROCKETT MD Common Visit Codes: NOT BILLABLE JUAN ANTONIO CROCKETT MD Feb 05, 2025 15:45
[2025-02-05] MEDS: METOPROLOL TARTRATE 25 MG TAB PO ONE (16:03)
--- NOTE | 2025-02-05 16:27 | DVHSR ---
APPROVED REPORT EXAM: Two-dimensional and M-mode echocardiogram with Doppler and color Doppler. Blood Pressure: 148/85 mmHg INDICATION afib RISK FACTORS Height: 5'7, Weight: 153 DIMENSIONS LVDd3.9 (3.8-5.7cm)LA (2D)4.0 (1.9-4.0cm)Aortic Root3.7 (2.0-3.7cm) LVDs2.9 (2.5-4.0cm)LA (MM) (1.9-4.0cm)Aortic Cusp Exc1.7 (1.5-2.0cm) EF (%) 55.0 (55-70%)Rt. Atrium3.0 (1.9-4.0cm)Asc. Aorta cm IVSd1.3 (0.7-1.1cm)RV (D)3.8 (1.8-2.4cm) PWd1.1 (0.7-1.1cm) Mitral Valve MitralMitral Stenosis E wave0.83m/sMV Mean GR.2mmHg A wavem/sMV Peak GR.86mmHg E/A ratio0.02D MVAcm2 DECEL [id number] 1/2 Timems Aortic Valve Aortic ValveAortic Stenosis V10.95m/Sage Mean GR.4mmHg V21.31m/Sage Peak GR.7mmHg LVOT Diameter2.3 (1.8-2.4cm)Doppler AVA3.01cm2 Pulmonic Valve V21.16m/s Tricuspid Valve TR Velocity2.57m/s [id number] Other Information Quality : Technically LimitedRhythm : Technically limited study due to pt unable to turn/ move had back surgery yesterday. Conclusion Atrial fibrillation. Left atrial enlargement. Aortic root enlargement. Concentric LVH. Mild aortic sclerosis. Mitral tricuspid and pulmonic or structurally normal. EF of 60% with normal RV function. Irregular contractility given atrial fibrillation. Dopplers unremarkable. No pericardial effusion masses or vegetations.
[2025-02-05] MEDS: ENOXAPARIN SOD 80 MG/0.8ML SYRINGE SC SCH (22:32)
[2025-02-05] MEDS: METOPROLOL TARTRATE 25 MG TAB PO SCH (22:42)
[2025-02-06] VITALS (8 sets, daily range): BP systolic 118–146; BP diastolic 75–92; PULSE 61–99; RESP 16–18; TEMP 97.5–98.3; O2SAT 94–98
[2025-02-06 06:51] LABS: Basophils # (auto) 0 10 ^3/uL (0-0.2); Basophils % (auto) 0.6 % (0.0-2.0); Eosinophils # (auto) 0.1 10 ^3/uL (0-0.8); Eosinophils % (auto) 0.9 % (0.0-7.0); Hematocrit 38.5 % (41.0-53.0); Hemoglobin 13.4 g/dL (13.5-17.5); Lymphocytes % (auto) 11.9 % (10.0-50.0); Mean Corpuscular Hemoglobin 31.9 pg (28.0-32.0); Mean Corpuscular Hgb Conc. 34.7 g/dL (32.0-36.0); Mean Corpuscular Volume 92.1 fL (80.0-100.0); Monocytes # (auto) 0.7 10 ^3/uL (0-1.3); Monocytes % (auto) 8.5 % (0.0-12.0); Neutrophils # (auto) 6.6 10 ^3/uL (1.6-8.6); Neutrophils % (auto) 78.1 % (37.0-80.0); Platelet Count (auto) 223 10^3/uL (140-450); Red Blood Cells 4.18 10^6/uL (4.5-5.90); Red Cell Distribution Width 13.7 % (11.8-14.3); White Blood Cell 8.4 10^3/uL (4.4-10.8)
[2025-02-06 07:07] LABS: Anion Gap 7 (5-15); Carbon Dioxide 26 mmol/L (20-31); Chloride 102 mmol/L (98-107); Potassium 4.1 mmol/L (3.5-5.1)
[2025-02-06 07:09] LABS: Calcium 9.9 mg/dL (8.7-10.4)
[2025-02-06 07:14] LABS: BUN/Creatinine Ratio 21.1 (10.0-20.0); Blood Urea Nitrogen 16 mg/dL (9-23); Magnesium 1.8 mg/dL (1.6-2.6)
[2025-02-06 07:21] LABS: Glucose 190 mg/dL (74-106); Sodium 135 mmol/L (136-145)
--- NOTE | 2025-02-06 10:32 | ECG ---
[facility] Test Date: 2025-02-05 Test Time: 11:08:42 Pat Name: ALLIE STRATTON Department: Room: 0278T B Gender: M Supervisor Lime: ARIADNE : 1945 Requested By: JUAN ANTONIO CROCKETT Order Number: [id number] Reading MD: Dash Michele Measurements Intervals Whitney Rate: 98 P: 0 WV: 0 QRS: 15 QRSD: 99 T: -50 QT: 374 QTc: 478 Interpretive Statements Atrial fibrillation Inferior infarct, age indeterminate Electronically Signed On 02-06-2025 12:40:13 PDT by Dash Michele Please click the below link to view image of tracing.
--- NOTE | 2025-02-06 13:04 | DVHPN2 ---
Progress Note - Surgical Date Seen: Feb 06, 2025 Post op day Post op day: 3 Subjective Patient reports: No new complaints, Feels better Review of Systems: HEENT:Normal, CVS:Normal, RESPIRATORY:Normal, GI:Normal, :Normal, MSK:Normal, NEURO:Normal Objective Vital signs Vital Sign Date Time Temp Pulse Resp B/P (MAP) Pulse Ox O2 Delivery O2 Flow Rate FiO2 02/06/25 09:00 98.1 92 16 128/91 (103) 94 98.1 02/06/25 08:00 Room Air* 0 21 Total Intake and Output 02/05/25 02/05/25 02/06/25 15:00 23:00 07:00 Intake Total 50 ml 250 ml 500 ml Output Total 85 ml 620 ml 700 ml Balance -35 ml -370 ml -200 ml Medications Current Medications Medications Dose Ordered Sig/Tatum Route Start Time Stop Time Status Last Admin Dose Admin Ondansetron HCl 4 mg Q4HP PRN IV 02/03/25 17:00 02/04/25 05:38 4 MG Acetaminophen 650 mg Q6HP PRN PO 02/03/25 17:00 Cyclobenzaprine HCl 10 mg TID PO 02/03/25 22:00 02/06/25 06:30 10 MG Docusate Sodium 100 mg BID PO 02/03/25 22:00 02/06/25 08:51 100 MG Nitroglycerin 0.4 mg Q5MINP PRN SL 02/03/25 17:00 Morphine Sulfate 2 mg Q30M PRN IV 02/03/25 17:00 Famotidine 20 mg DAILY PO 02/04/25 10:00 02/06/25 08:50 20 MG Metformin HCl 500 mg DAILY PO 02/04/25 10:00 02/06/25 08:49 500 MG Throat Lozenges 1 daquan Q2HP PRN MT 02/03/25 22:15 Amlodipine Besylate 10 mg DAILY PO 02/05/25 10:00 02/06/25 08:51 10 MG Lisinopril 2.5 mg DAILY PO 02/05/25 10:00 02/06/25 08:50 2.5 MG Morphine Sulfate 2 mg Q4HP PRN IV 02/04/25 17:00 02/06/25 06:47 2 MG Diagnostic Test (Pha) 1 strip ACHS 02/04/25 17:00 02/06/25 11:46 1 STRIP Insulin Human Regular ACHS SC 02/04/25 17:00 02/06/25 11:46 6 UNITS Dextrose 50 ml UD PRN IV 02/04/25 13:00 Acetaminophen/ Hydrocodone Bitart 1 tab Q4HP PRN PO 02/04/25 13:45 02/04/25 22:09 1 TAB Enoxaparin Sodium 70 mg Q12HR SC 02/05/25 22:00 02/05/25 22:32 70 MG Metoprolol Tartrate 25 mg BID PO 02/05/25 22:00 02/06/25 08:50 25 MG Laboratory Laboratory Tests 02/06/25 06:18 Test 02/06/25 06:18 Range/Units Serum Glucose 190 H 74-106 mg/dL Examination: GENERAL:Normal, HEENT:Normal, NECK:Normal, LUNGS:Normal, CVS:Abnormal (Cardiac clearance prior to discharge, patient still gets up in the 140s 150s with ambulation), MSK:Normal, SKIN:Normal (Dressing intact), NEURO:Normal (Patient verbalized improvement in neurologic symptoms from his preop condition), :Normal Problem List/Assessment/Plan Problems: (1) Muscle spasm of back (2) Postoperative pain after spinal surgery Assessment and Plan Drain output #1 over 50 ml out in past 24 hours DC'd today Drain site dressing needs to be changed per nursing prior to discharge. bety intact, seal reinforced. patient experiencing expected post operative pain patient stated preoperative nerve pain has greatly improved. patient is progressing well, will reassesses drain output tomorrow. Pending cardiac clearance prior to dc Patient cleared to discharge from a spine surgery perspective, patient already has a postoperative appointment scheduled -Pain: - IV pain meds post op day 1, with PO supplementation, goal is to progress weaning off IV medications and control pain with PO only. morphine 2mg q 4 hours (PAIN 7-10), added one time dose now. - P.O. analgesics:Tylenol 650MG (PAIN 1-3) [place] 10/325 mg (PAIN 4-6) - Muscle relaxers scheduled administration. This is a beneficial medications for the incisional pain as it is mostly related to muscle spasms. Flexeril 10 mg TID - Cepacol throat lozenges as needed for sore throat -Antibiotics Operative recommendations: -Postoperative dose:-Post operative antibiotics cefazolin 1 g IV piggyback every 8 hours x 48 hours total of 6 doses -DVT PPX: Lovenox started due to new onset a -fib -Activity: -pt working with PT improving -Sit at side of bed for meals -Goal: Ambulate independently and safely (may use assistive devices if needed) -Medical Therapy goals: -Afebrile- Patient may develop a expected post operative fever by day 2-3, this may not be accompanied with a elevation in WBC. if fever develops: Acetaminophen for fever. Albuterol nebulizer Tx every 12 hours for 24 hours to facilitate adequate lung expansion and prevent development of atelectasis. -Euglycemic: bloods sugars under 130mmol/L for optimal healing -Normotensive: Avoid events of hypertension. This helps to keep post operative healing intact and avoids destabilization of beneficial hemostatic coagulation. -Lumbar: -If patient is comfortable encouraged the patient to lay on their side to facilitate wound healing -Dressings Take care not to disrupt the BETY dressing seal. If there is a break in the seal it can be trouble shot with a Tegaderm dressing. -Bowel management: -Colace 100mg bid -Diet: -Clear liquid diet and advance as patient tolerates within dietary limitations ( example: diabetic, Cardiac) -Incentive Spirometer: -10 x hour while awake, RN please educate and observe repeat demonstration, have IS at bedside POD #1 -X-rays: - none indicated at this time -Consults: -Physical Therapy evaluation, treatment recommendations, and discharge recommendations Call with questions Chase Sullivan [facility]edic Spine Surgery nurse practitioner For Dr Clarice Wilson Patient was examined, chart reviewed, labs evaluated, and diagnostic studies and findings analyzed. Case was discussed with Dr. Micah Wilson who formulated the plan of care. This medical document was created using an electronic medical record system with I.Predict[employer] dictation system. Although this document has been carefully reviewed, there might still be some phonetic and typographical errors. These areas are purely typographical due to imperfections of the software programs, and do not reflect any compromise in the patient's medical care. Plan discussed with Plan discussed with: Patient, Other (Rosa Maria RN extension [phone]) Visit Coding Surgery Date of Service if different f: Feb 03, 2025 Billing Provider: YUDI SULLIVAN NP Surgery Visit Codes: NOT BILLABLE YUDI SULLIVAN NP Feb 06, 2025 13:04
[2025-02-06] MEDS ORDERED: HYDR-4798 PO (13:05)
[2025-02-06] MEDS ORDERED: CYCL-611 PO (13:05)
--- NOTE | 2025-02-06 13:11 | DVHDS2 ---
ASSESSMENT ASSESSMENT Hospital Course The patient arrived for a elective spine surgery with Dr. WILSON. Surgery went as planned with no complications. After a short stay in the PACU patient was admitted to the hospital for postoperative care and pain management over the course of 3 postoperative days the patient was able to tolerate a diet, ambulate independently, the pain has been managed with oral analgesics. The surgical site is well-approximated with sutures, some residual drainage continues from drain insertion sites after removal, however it is manageable with daily wound care and dressing changes. Some improvement to preoperative symptoms of extremities, strength and motion. There is new post operative pain that is localized to the surgical site. Patient did develop a fib with RVR during his stay and a cardiac consult was called to manage this finding. A cardiac workup was reformed. The patient will follow-up with Dr. Wilson for wound check and suture check or staple removal. Call [phone] for a appointment, or to change or confirm your appoinment [address] [place] [address], [address] [id number] Patient may be discharged from a spine surgical perspective Patient will be discharged with madan dressing in place, this will be removed at postop follow-up appointment which should be scheduled by postoperative day 10- 14 Your madan dressing may be carried in your pocket or belt clip what ever is most comfortable for you. Your madan pump contains a small magnet be sure to keep it at least 4 inches or 10 cm away from any other medical devices at all times. As with all electrical medical equipment, failure to maintain appropriate distance may disrupt the operation of nearby medical devices. Sleeping, be sure your madan drain is placed somewhere safe and cannot be pulled off of the table or a cabinet onto the floor during sleeping. Washing and showering, do not soak the dressing or allow the pump to get wet. You may shower with your madan dressing. However do not allow the water to saturate the dressing. The power source must be placed in a Ziploc bag and the opening taped closed to prevent the power source from getting wet No bending lifting or twisting until cleared by your surgeon. 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
--- NOTE | 2025-02-06 16:56 | DVHPN2 ---
Subjective Patient is currently getting 2D echo, denies any chest pain shortness of breath. Changes from previous H/P or p: No Changes Objective Vitals Vital Signs Date Time Temp Pulse Resp B/P (MAP) Pulse Ox O2 Delivery O2 Flow Rate FiO2 02/06/25 16:45 97.7 99 16 123/80 (94) 96 97.7 02/06/25 08:00 Room Air* 0 21 Intake/Output Intake and Output 02/06/25 07:00 Intake Total 800 ml Output Total 1405 ml Balance -605 ml Intake Oral 500 ml IV Total 300 ml Output Urine Total 1300 ml Drainage Total 105 ml Exam HEENT pupils are reactive Neck is supple CV is S1-S2 irregular irregular rate and rhythm between [id number] Respiratory bilateral clear GI positive bowel sound Extremity no edema [employer] no motor deficit Medications Current Medications Medications Dose Ordered Sig/Tatum Route Start Time Stop Time Status Last Admin Dose Admin Ondansetron HCl 4 mg Q4HP PRN IV 02/03/25 17:00 02/04/25 05:38 4 MG Acetaminophen 650 mg Q6HP PRN PO 02/03/25 17:00 Cyclobenzaprine HCl 10 mg TID PO 02/03/25 22:00 02/06/25 15:46 10 MG Docusate Sodium 100 mg BID PO 02/03/25 22:00 02/06/25 08:51 100 MG Nitroglycerin 0.4 mg Q5MINP PRN SL 02/03/25 17:00 Morphine Sulfate 2 mg Q30M PRN IV 02/03/25 17:00 Famotidine 20 mg DAILY PO 02/04/25 10:00 02/06/25 08:50 20 MG Metformin HCl 500 mg DAILY PO 02/04/25 10:00 02/06/25 08:49 500 MG Throat Lozenges 1 daquan Q2HP PRN MT 02/03/25 22:15 Amlodipine Besylate 10 mg DAILY PO 02/05/25 10:00 02/06/25 08:51 10 MG Lisinopril 2.5 mg DAILY PO 02/05/25 10:00 02/06/25 08:50 2.5 MG Morphine Sulfate 2 mg Q4HP PRN IV 02/04/25 17:00 02/06/25 06:47 2 MG Diagnostic Test (Pha) 1 strip ACHS 02/04/25 17:00 02/06/25 11:46 1 STRIP Insulin Human Regular ACHS SC 02/04/25 17:00 02/06/25 11:46 6 UNITS Dextrose 50 ml UD PRN IV 02/04/25 13:00 Acetaminophen/ Hydrocodone Bitart 1 tab Q4HP PRN PO 02/04/25 13:45 02/04/25 22:09 1 TAB Enoxaparin Sodium 70 mg Q12HR SC 02/05/25 22:00 02/05/25 22:32 70 MG Metoprolol Tartrate 25 mg BID PO 02/05/25 22:00 02/06/25 08:50 25 MG Laboratory Results Laboratory Tests 02/06/25 06:18 Chemistry Test 02/06/25 06:18 Calcium Level 9.9 mg/dL (8.7-10.4) Magnesium Level 1.8 mg/dL (1.6-2.6) Assessment/Plan Assessment/Plan 79-year-old male with a known history of hypertension, diabetes mellitus type 2, GERD, chronic lumbar back pain is here for lumbar spine surgery. 1. AFib with RVR, currently rate controlled 2. Diabetes mellitus type 2 3. GERD 4. Lumbar radiculopathy status post L3-4-5 lumbar spinal canal decompression surgery 5. Hypertension -add beta catrina, therapeutic Lovenox, risks benefits and alternatives of therapeutic Lovenox including life-threatening bleeding disability explained to the patient in detail who understand verbalized understanding and agreeable to plan. -2D echo, cardiology consultation. Therapeutic Lovenox for primary prevention of acute CVA. Plan discussed with: Patient Date of Service: Feb 06, 2025 Billing Provider: JUAN ANTONIO CROCKETT MD Common Visit Codes: NOT BILLABLE JUAN ANTONIO CROCKETT MD Feb 06, 2025 16:56
[2025-02-07] VITALS (9 sets, daily range): BP systolic 122–146; BP diastolic 77–94; PULSE 67–162; RESP 17–19; TEMP 97.8–98.2; O2SAT 92–98
--- NOTE | 2025-02-07 16:21 | DVHINCON2 ---
Date Seen: Feb 07, 2025 Referring Physician MD Ruel Reason for Consultation Afib RVR History of Present Illness This is a 79-year-old male patient who presents to this hospital for an elective lumbar spinal decompression. The patient underwent surgical intervention on 02/03/25 and was subsequently admitted to this facility. Cardiology has been consulted at this time for atrial fibrillation with rapid ventricular response. Initial twelve lead electrocardiogram reveals atrial fibrillation. At time of assessment, the patient is in an atrial flutter rhythm. The patient denies any cardiac symptoms. Significant past medical history includes hypertension, hyperlipidemia type 2 diabetes mellitus, lung cancer status post radiation now in remission x3 years, bladder cancer status post chemotherapy now in remission x6 years, and lumbar spinal stenosis. The patient denies any previous history of atrial fibrillation. He reports that he was recently cleared by Cardiology in the outpatient setting to undergo surgery and was told that his heart was "f ine". Past Medical History Past medical history reviewed. No other significant than mentioned above. Past Surgical History Bilateral shoulder surgery Bilateral carpal tunnel surgery Family History: G8 MOTHER FH: cancer Family History Family history reviewed. Social History Denies the use of tobacco, alcohol or illicit drugs. Allergies: Coded Allergies: NO KNOWN ALLERGIES (Unverified , 01/30/25) Home Meds Active Scripts Hydrocodone-Acetaminophen (Hydrocodone Bitartrate/AC 10-325 mg) 1 Tab Tab, 1 TAB PO Q4HP PRN for 7 Days, #35 TAB Prov:YUDI RIVERO SCRUM COACH 02/06/25 Cyclobenzaprine HCl (Cyclobenzaprine Hydrochlo) 10 Mg Tab, 10 MG PO TID for 30 Days, #90 TAB Prov:YUDI RIVERO SCRUM COACH 02/06/25 Reported Medications Sildenafil Citrate (Viagra) 100 Mg Tab, 100 MG PO PRN, TAB 01/30/25 Curcuma [place]a (Turmeric) Extra (TURMERIC) 500 Mg Cap, 1500 MG OR BID, CAP 01/30/25 Lisinopril (Lisinopril) 2.5 Mg Tab, 1.5 MG PO DAILY, TAB 01/30/25 Meloxicam (Meloxicam) 15 Mg Tab, 15 MG PO DAILY, TAB 01/30/25 Amlodipine Besylate (Amlodipine Besylate) 10 Mg Tab, 10 MG PO DAILY, TAB 01/30/25 Famotidine (PEPCID TABLET) 20 Mg Tb, 20 MG GT DAILY, TAB 01/30/25 Metformin Hydrochloride (Metformin Hcl) 500 Mg Tab, 500 MG PO DAILY, TAB 01/30/25 Glipizide (Glipizide) 10 Mg Tab, 10 MG PO BID, TAB 01/30/25 Home Meds Home medications reviewed. Current Medications Current Medications Medications (Trade) Dose Ordered Sig/Tatum Route PRN Reason Start Time Stop Time Status Last Admin Enoxaparin Sodium (Lovenox) 60 mg Q12HR SC 02/07/25 22:00 Review of Systems Constitutional: No symptom reported Ears, Nose, & Throat: No symptom reported Eyes: No symptom reported Neurological: No symptoms reported Pulmonary/Respiratory: No symptoms reported Cardiovascular: No symptom reported Gastrointestinal: No symptom reported Genitourinary: No symptom reported Musculoskeletal: Back pain Skin: No symptom reported Psychiatric: No symptom reported Endocrine: No symptom reported Hematologic/Lymphatic: No symptom reported Vital Signs Vital Signs Date Time Temp Pulse Resp B/P (MAP) Pulse Ox O2 Delivery O2 Flow Rate FiO2 02/07/25 13:03 98.1 87 18 138/83 (101) 95 98.1 02/07/25 08:00 Room Air* 0 21 Physical Exam General Appearance: Cooperative. Well-developed. Well-nourished. No acute distress. Pulmonary/Respiratory: Clear, bilateral breaths sounds. Cardiovascular/Chest: Irregularly irregular rate and rhythm. Peripheral Pulses: 2+ Radial (R). 2+ Radial (L). 2+ Pedal (R). 2+ Pedal (L) Abdominal Exam: Normal bowel sounds. Ankle Exam: Negative ankle edema Lower extremities: Negative lower extremity edema Neuro/Mental Status: A/OX4, coherent. Thoughts/Psych: Normal thought pattern. Appropriate mood and affect. Good judgment and insight. Appearance: No acute distress. Skin Exam: Normal inspection. Normal color. Warm and dry. Labs/Diagnostic Data Labs Test 02/07/25 16:07 02/07/25 12:11 02/06/25 06:18 02/05/25 11:55 Range/Units POC Glucose 239 H 70-106 mg/dl Eosinophils (%) (Auto) 0.9 0.0-7.0 % Eosinophils # (Auto) 0.1 0-0.8 10 ^3/uL Basophils # (Auto) 0 0-0.2 10 ^3/uL Nucleated Red Blood Cells 0.0 % Lactic Acid Level 1.1 0.4-2.0 mmol/L Assessment Atrial fibrillation with a rapid ventricular response, rate now controlled, new onset Hypertension Hyperlipidemia Type 2 diabetes mellitus History of lung cancer status post radiation History of bladder cancer status post chemotherapy Lumbar spinal stenosis status post lumbar spinal decompression Plan/Recommendation We will continue with the following plan/recommendations (Dr. Cardenas): * Transthoracic echocardiogram reveals EF 60% * [id number] VASc score: 4 points, HAS-BLED score: 1 point * Therapeutic Lovenox while inpatient, transition to NOAC (Eliquis) once cleared by ortho team * Beta-catrina for rate control; up-titrate as needed * Avoid antiarrhythmic agent given that AFib duration has been longer than 48 hours * Monitor and replete electrolytes as needed, keep potassium greater than four and magnesium greater than two * Close Cardiac surveillance Case discussed with . Thank you for allowing us to care for this patient. Please call with any questions or concerns. Critical care time spent: 44 minutes This medical document was created using an electronic medical record system with voice recognition software and computerized dictation system. Although this document has been carefully reviewed, there might still be some phonetic and typographical errors. Occasional wrong-word or ``sound-alike substitutions may have occurred due to the inherent limitations of voice recognition software. These areas are purely typographical due to imperfections of the software programs and do not reflect any compromise in the patient's medical care. Please read the chart carefully and recognize, using context, where these substitutions have occurred. Plan discussed with: Patient NYHA Physical activity limitations: NA Date of Service: Feb 07, 2025 Billing Provider: FLORENCIA GOYAL Cardiology Common Codes: [id number] INP/OBS CARE (High) Cardiology Consultation Codes: [id number] CONSULT <45MIN FLORENCIA GOYAL Feb 07, 2025 16:21
[2025-02-07 16:28] LABS: Anion Gap 10 (5-15); Carbon Dioxide 27 mmol/L (20-31); Chloride 99 mmol/L (98-107); Potassium 3.9 mmol/L (3.5-5.1)
[2025-02-07 16:29] LABS: Calcium 10.2 mg/dL (8.7-10.4)
[2025-02-07 16:31] LABS: Basophils # (auto) 0 10 ^3/uL (0-0.2); Basophils % (auto) 0.7 % (0.0-2.0); Eosinophils # (auto) 0.1 10 ^3/uL (0-0.8); Eosinophils % (auto) 1.2 % (0.0-7.0); Hematocrit 38.6 % (41.0-53.0); Hemoglobin 13.1 g/dL (13.5-17.5); Lymphocytes # (auto) 1.3 10 ^3/uL (0.4-5.4); Lymphocytes % (auto) 19.9 % (10.0-50.0); Mean Corpuscular Hemoglobin 31.2 pg (28.0-32.0); Mean Corpuscular Volume 91.7 fL (80.0-100.0); Monocytes # (auto) 0.8 10 ^3/uL (0-1.3); Monocytes % (auto) 12.5 % (0.0-12.0); Neutrophils # (auto) 4.4 10 ^3/uL (1.6-8.6); Neutrophils % (auto) 65.7 % (37.0-80.0); Nucleated Red Blood Cells % 0.2 %; Platelet Count (auto) 237 10^3/uL (140-450); Red Blood Cells 4.21 10^6/uL (4.5-5.90); Red Cell Distribution Width 13.5 % (11.8-14.3); White Blood Cell 6.7 10^3/uL (4.4-10.8)
[2025-02-07 16:34] LABS: BUN/Creatinine Ratio 33.7 (10.0-20.0)
[2025-02-07 16:36] LABS: Blood Urea Nitrogen 29 mg/dL (9-23); Cholesterol 176 mg/dL (< 200); Glucose 126 mg/dL (74-106); HDL Cholesterol 38 mg/dL (40-59); LDL Cholesterol 109 mg/dL (< 100); Magnesium 1.6 mg/dL (1.6-2.6); Sodium 136 mmol/L (136-145); Triglycerides 158 mg/dL (< 150)
[2025-02-07] MEDS: MAGNESIUM SULFATE 1GM/100ML 100 ML IV ONE (17:03)
--- NOTE | 2025-02-07 18:39 | DVHPN2 ---
Subjective Currently we are waiting for Cardiology consultation , patient denies any chest pain or shortness for breath Changes from previous H/P or p: No Changes Objective Vitals Vital Signs Date Time Temp Pulse Resp B/P (MAP) Pulse Ox O2 Delivery O2 Flow Rate FiO2 02/07/25 16:59 97.8 67 19 146/77 (100) 98 97.8 02/07/25 08:00 Room Air* 0 21 Intake/Output Intake and Output 02/07/25 07:00 Intake Total 940 ml Balance 940 ml Intake Oral 940 ml # Voids 8 Exam HEENT pupils are reactive Neck is supple CV is S1-S2 irregular irregular rate and rhythm between [id number] Respiratory bilateral clear GI positive bowel sound Extremity no 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 no motor deficit Medications Current Medications Medications Dose Ordered Sig/Tatum Route Start Time Stop Time Status Last Admin Dose Admin Ondansetron HCl 4 mg Q4HP PRN IV 02/03/25 17:00 02/04/25 05:38 4 MG Acetaminophen 650 mg Q6HP PRN PO 02/03/25 17:00 Cyclobenzaprine HCl 10 mg TID PO 02/03/25 22:00 02/07/25 15:07 10 MG Docusate Sodium 100 mg BID PO 02/03/25 22:00 02/07/25 08:35 100 MG Nitroglycerin 0.4 mg Q5MINP PRN SL 02/03/25 17:00 Morphine Sulfate 2 mg Q30M PRN IV 02/03/25 17:00 Famotidine 20 mg DAILY PO 02/04/25 10:00 02/07/25 08:35 20 MG Metformin HCl 500 mg DAILY PO 02/04/25 10:00 02/07/25 08:34 500 MG Throat Lozenges 1 daquan Q2HP PRN MT 02/03/25 22:15 Amlodipine Besylate 10 mg DAILY PO 02/05/25 10:00 02/07/25 08:34 10 MG Lisinopril 2.5 mg DAILY PO 02/05/25 10:00 02/07/25 08:34 2.5 MG Morphine Sulfate 2 mg Q4HP PRN IV 02/04/25 17:00 02/07/25 08:36 2 MG Diagnostic Test (Pha) 1 strip ACHS 02/04/25 17:00 02/07/25 17:06 1 STRIP Insulin Human Regular ACHS SC 02/04/25 17:00 02/07/25 12:39 4 UNITS Dextrose 50 ml UD PRN IV 02/04/25 13:00 Acetaminophen/ Hydrocodone Bitart 1 tab Q4HP PRN PO 02/04/25 13:45 02/07/25 17:03 1 TAB Metoprolol Tartrate 25 mg BID PO 02/05/25 22:00 02/07/25 08:35 25 MG Enoxaparin Sodium 60 mg Q12HR SC 02/07/25 22:00 Laboratory Results Laboratory Tests 02/07/25 16:07 Chemistry Test 02/07/25 16:07 Calcium Level 10.2 mg/dL (8.7-10.4) Magnesium Level 1.6 mg/dL (1.6-2.6) Lipid panel Test 02/07/25 16:07 Cholesterol Level 176 mg/dL (< 200) HDL Cholesterol 38 mg/dL (40-59) L Triglycerides Level 158 mg/dL (< 150) H HgA1c, TSH Test 02/07/25 16:07 Hemoglobin A1c 7.5 % A1C (<5.7) H Thyroid Stimulating Hormone (TSH) 4.63 uIU/mL (0.55-4.78) Assessment/Plan Assessment/Plan 79-year-old male with a known history of hypertension, diabetes mellitus type 2, GERD, chronic lumbar back pain is here for lumbar spine surgery. 1. AFib with RVR, currently rate controlled 2. Diabetes mellitus type 2 3. GERD 4. Lumbar radiculopathy status post L3-4-5 lumbar spinal canal decompression surgery 5. Hypertension -add beta catrina, therapeutic Lovenox, risks benefits and alternatives of therapeutic Lovenox including life-threatening bleeding disability explained to the patient in detail who understand verbalized understanding and agreeable to plan. -2D echo, cardiology consultation. Therapeutic Lovenox for primary prevention of acute CVA. -we will switch to Eliquis upon discharge. Plan discussed with: Patient My Orders Orders - JUAN ANTONIO CROCKETT MD Procedure Category Date Status Time Enoxaparin Sodium PHA 02/07/25 In Process (Lovenox) 22:00 * Cardiology Consult CONS 02/07/25 Transmitted 14:15 Date of Service: Feb 07, 2025 Billing Provider: JUAN ANTONIO CROCKETT MD Common Visit Codes: NOT BILLABLE JUAN ANTONIO CROCKETT MD Feb 07, 2025 18:39
[2025-02-07] MEDS: ENOXAPARIN SOD 60 MG/0.6 ML SYRINGE SC SCH (21:26)
[2025-02-07] MEDS: ACETAMINOPHEN 325 MG TAB PO PRN (21:31)
--- NOTE | 2025-02-07 23:56 | DVHINCON2 ---
Date Seen: Feb 07, 2025 Referring Physician MD Ruel Reason for Consultation Afib RVR History of Present Illness This is a 79-year-old male with a past medical history includes hypertension, hyperlipidemia type 2 diabetes mellitus, lung cancer status post radiation now in remission x3 years, bladder cancer status post chemotherapy now in remission x6 years, and lumbar spinal stenosis who was initially seen at [facility] for an elective lumbar spinal decompression with Dr. Wilson. Patient underwent surgical intervention on 02/03/25 and was subsequently admitted postoperatively. Cardiology has been consulted at this time for atrial fibrillation with rapid ventricular response. Initial twelve lead electrocardiogram reveals atrial fibrillation. At time of assessment, the patient is in an atrial flutter rhythm. The patient denies any cardiac symptoms. The patient denies any previous history of atrial fibrillation. He reports that he was recently cleared by Cardiology in the outpatient setting to undergo surgery and was told that his heart was "fine". Past Medical History Past medical history reviewed. No other significant than mentioned above. Past Surgical History Bilateral shoulder surgery Bilateral carpal tunnel surgery Family History: FH: cancer G8 MOTHER Allergies: Coded Allergies: NO KNOWN ALLERGIES (Unverified , 01/30/25) Home Meds Active Scripts Hydrocodone-Acetaminophen (Hydrocodone Bitartrate/AC 10-325 mg) 1 Tab Tab, 1 TAB PO Q4HP PRN for 7 Days, #35 TAB Prov:YUDI RIVERO PASTA MAKER 02/06/25 Cyclobenzaprine HCl (Cyclobenzaprine Hydrochlo) 10 Mg Tab, 10 MG PO TID for 30 Days, #90 TAB Prov:YUDI RIVERO NP 02/06/25 Reported Medications Sildenafil Citrate (Viagra) 100 Mg Tab, 100 MG PO PRN, TAB 01/30/25 Curcuma Longa (Turmeric) Extra (TURMERIC) 500 Mg Cap, 1500 MG OR BID, CAP 01/30/25 Lisinopril (Lisinopril) 2.5 Mg Tab, 1.5 MG PO DAILY, TAB 01/30/25 Meloxicam (Meloxicam) 15 Mg Tab, 15 MG PO DAILY, TAB 01/30/25 Amlodipine Besylate (Amlodipine Besylate) 10 Mg Tab, 10 MG PO DAILY, TAB 01/30/25 Famotidine (PEPCID TABLET) 20 Mg Tb, 20 MG GT DAILY, TAB 01/30/25 Metformin Hydrochloride (Metformin Hcl) 500 Mg Tab, 500 MG PO DAILY, TAB 01/30/25 Glipizide (Glipizide) 10 Mg Tab, 10 MG PO BID, TAB 01/30/25 Current Medications Current Medications Medications (Trade) Dose Ordered Sig/Tatum Route PRN Reason Start Time Stop Time Status Last Admin Enoxaparin Sodium (Lovenox) 60 mg Q12HR SC 02/07/25 22:00 Review of Systems Constitutional: No symptom reported Ears, Nose, & Throat: No symptom reported Eyes: No symptom reported Neurological: No symptoms reported Pulmonary/Respiratory: No symptoms reported Cardiovascular: No symptom reported Gastrointestinal: No symptom reported Genitourinary: No symptom reported Musculoskeletal: Back pain Skin: No symptom reported Psychiatric: No symptom reported Endocrine: No symptom reported Hematologic/Lymphatic: No symptom reported Vital Signs Vital Signs Date Time Temp Pulse Resp B/P (MAP) Pulse Ox O2 Delivery O2 Flow Rate FiO2 02/07/25 13:03 98.1 87 18 138/83 (101) 95 98.1 02/07/25 08:00 Room Air* 0 21 Physical Exam GENERAL: Alert and oriented x 3. No acute distress. EYES: PERRL, EOMI. Anicteric. HENT: Moist mucous membranes. LUNGS: Clear to auscultation bilaterally. CARDIOVASCULAR: Irregular rate and rhythm. ABDOMEN: Soft, nontender and nondistended. EXTREMITIES: No edema. NEUROLOGIC: No focal neurological deficits. SKIN: Warm, dry. Labs/Diagnostic Data Labs Test 02/07/25 16:07 02/07/25 12:11 02/05/25 11:55 Range/Units White Blood Count 6.7 4.4-10.8 10^3/uL Red Blood Count 4.21 L 4.5-5.90 10^6/uL Hemoglobin 13.1 L 13.5-17.5 g/dL Hematocrit 38.6 L 41.0-53.0 % Mean Corpuscular Volume 91.7 80.0-100.0 fL Mean Corpuscular Hemoglobin 31.2 28.0-32.0 pg Mean Corpuscular Hemoglobin Concent 34.0 32.0-36.0 g/dL Red Cell Distribution Width 13.5 11.8-14.3 % Platelet Count 237 140-450 10^3/uL Mean Platelet Volume 8.5 6.9-10.8 fL Neutrophils (%) (Auto) 65.7 37.0-80.0 % Lymphocytes (%) (Auto) 19.9 10.0-50.0 % Monocytes (%) (Auto) 12.5 H 0.0-12.0 % Eosinophils (%) (Auto) 1.2 0.0-7.0 % Basophils (%) (Auto) 0.7 0.0-2.0 % Neutrophils # (Auto) 4.4 1.6-8.6 10 ^3/uL Lymphocytes # (Auto) 1.3 0.4-5.4 10 ^3/uL Monocytes # (Auto) 0.8 0-1.3 10 ^3/uL Eosinophils # (Auto) 0.1 0-0.8 10 ^3/uL Basophils # (Auto) 0 0-0.2 10 ^3/uL Nucleated Red Blood Cells 0.2 % Sodium Level 136 136-145 mmol/L Potassium Level 3.9 3.5-5.1 mmol/L Chloride Level 99 98-107 mmol/L Carbon Dioxide Level 27 20-31 mmol/L Anion Gap 10 5-15 Blood Urea Nitrogen 29 #H 9-23 mg/dL Creatinine 0.86 0.700-1.30 mg/dL Glomerular Filtration Rate Calc 89 >90 mL/min BUN/Creatinine Ratio 33.7 H 10.0-20.0 Serum Glucose 126 H 74-106 mg/dL Hemoglobin A1c 7.5 H <5.7 % A1C Calcium Level 10.2 8.7-10.4 mg/dL Magnesium Level 1.6 1.6-2.6 mg/dL Triglycerides Level 158 H < 150 mg/dL Cholesterol Level 176 < 200 mg/dL LDL Cholesterol 109 H < 100 mg/dL HDL Cholesterol 38 L 40-59 mg/dL POC Glucose 239 H 70-106 mg/dl Lactic Acid Level 1.1 0.4-2.0 mmol/L Assessment Atrial fibrillation with a rapid ventricular response, rate now controlled, new onset. Hypertension. Hyperlipidemia. Type 2 diabetes mellitus. History of lung cancer status post radiation. History of bladder cancer status post chemotherapy. Lumbar spinal stenosis status post lumbar spinal decompression. Plan/Recommendation I agree with your ongoing assessment and care of plan. Patient has been seen by Irais Wyman NP on my behalf, her and I discussed the plan with the patient. Transthoracic echocardiogram reveals EF 60%. [id number] VASc score: 4 points, HAS-BLED score: 1 point. Therapeutic Lovenox while inpatient, transition to NOAC (Eliquis) once cleared by ortho team. Beta-catrina for rate control; up-titrate as needed. Monitor and replete electrolytes as needed, keep potassium greater than four and magnesium greater than two. Close Cardiac surveillance. Additional plan as per the hospital course. Plan discussed with: Patient NYHA Physical activity limitations: NA Date of Service: Feb 07, 2025 Billing Provider: YUN HAND MD Cardiology Common Codes: [id number] INP/OBS CARE (High) Cardiology Consultation Codes: [id number] CONSULT <45MIN YUN HAND MD Feb 07, 2025 16:51
[2025-02-08 02:00] VITALS: BP 131/80; PULSE 97; RESP 17; TEMP 97.6; O2SAT 98
[2025-02-08 05:00] VITALS: BP 111/75; PULSE 95; RESP 18; TEMP 97.7; O2SAT 97
[2025-02-08 08:00] VITALS: PULSE 88; PULSE 96; RESP 16
[2025-02-08 09:17] VITALS: BP 117/66; PULSE 81; RESP 20; TEMP 98.1; O2SAT 99
[2025-02-08 13:00] VITALS: BP 122/86; PULSE 89; RESP 20; TEMP 99.8; O2SAT 97
[2025-02-08] MEDS ORDERED: METO25TA93 PO (13:37)
[2025-02-08] MEDS ORDERED: APIX5TAB PO (13:37)
--- NOTE | 2025-02-08 13:40 | DVHDS2 ---
Discharge Summary Date of Admission Feb 03, 2025 at 16:59 Date of Discharge: Feb 08, 2025 Labs/Diagnostic Data: Laboratory Results Test 02/08/25 11:58 02/07/25 16:07 02/05/25 11:55 POC Glucose 172 mg/dl (70-106) White Blood Count 6.7 10^3/uL (4.4-10.8) Red Blood Count 4.21 10^6/uL (4.5-5.90) Hemoglobin 13.1 g/dL (13.5-17.5) Hematocrit 38.6 % (41.0-53.0) Mean Corpuscular Volume 91.7 fL (80.0-100.0) Mean Corpuscular Hemoglobin 31.2 pg (28.0-32.0) Mean Corpuscular Hemoglobin Concent 34.0 g/dL (32.0-36.0) Red Cell Distribution Width 13.5 % (11.8-14.3) Platelet Count 237 10^3/uL (140-450) Mean Platelet Volume 8.5 fL (6.9-10.8) Neutrophils (%) (Auto) 65.7 % (37.0-80.0) Lymphocytes (%) (Auto) 19.9 % (10.0-50.0) Monocytes (%) (Auto) 12.5 % (0.0-12.0) Eosinophils (%) (Auto) 1.2 % (0.0-7.0) Basophils (%) (Auto) 0.7 % (0.0-2.0) Neutrophils # (Auto) 4.4 10 ^3/uL (1.6-8.6) Lymphocytes # (Auto) 1.3 10 ^3/uL (0.4-5.4) Monocytes # (Auto) 0.8 10 ^3/uL (0-1.3) Eosinophils # (Auto) 0.1 10 ^3/uL (0-0.8) Basophils # (Auto) 0 10 ^3/uL (0-0.2) Nucleated Red Blood Cells 0.2 % Sodium Level 136 mmol/L (136-145) Potassium Level 3.9 mmol/L (3.5-5.1) Chloride Level 99 mmol/L (98-107) Carbon Dioxide Level 27 mmol/L (20-31) Anion Gap 10 (5-15) Blood Urea Nitrogen 29 mg/dL (9-23) Creatinine 0.86 mg/dL (0.700-1.30) Glomerular Filtration Rate Calc 89 mL/min (>90) BUN/Creatinine Ratio 33.7 (10.0-20.0) Serum Glucose 126 mg/dL (74-106) Hemoglobin A1c 7.5 % A1C (<5.7) Calcium Level 10.2 mg/dL (8.7-10.4) Magnesium Level 1.6 mg/dL (1.6-2.6) Triglycerides Level 158 mg/dL (< 150) Cholesterol Level 176 mg/dL (< 200) LDL Cholesterol 109 mg/dL (< 100) HDL Cholesterol 38 mg/dL (40-59) Thyroid Stimulating Hormone (TSH) 4.63 uIU/mL (0.55-4.78) Lactic Acid Level 1.1 mmol/L (0.4-2.0) Other Laboratory Tests 02/07/25 16:07 Brief Hx & Hospital Course: 79-year-old male with a known history of hypertension, diabetes mellitus type 2, GERD, chronic lumbar back pain is here for lumbar spine surgery. Patient underwent lumbar spine surgery at L3-4 five level for lumbar radiculopathy. Patient's hospital course was eventful for AFib with the RVR requiring IV amiodarone drip. Patient was switched to beta catrina and Eliquis upon discharge. Patient is currently being discharged under stable condition. Risks benefits alternatives of Eliquis including life-threatening bleeding disability explained to the patient in detail who understand verbalized understanding and agreeable to plan. Condition at Discharge: Stable Final Diagnosis/Problems List 79-year-old male with a known history of hypertension, diabetes mellitus type 2, GERD, chronic lumbar back pain is here for lumbar spine surgery. 1. AFib with RVR, currently rate controlled 2. Diabetes mellitus type 2 3. GERD 4. Lumbar radiculopathy status post L3-4-5 lumbar spinal canal decompression surgery 5. Hypertension Discharge Disposition: Home with [facility] Discharge Will this Physician continue t: No Discharge Instruct/Medications Diet: Cardiac 2g Na,low cholest Diet comment: 1999 ADA diet Activity: See Comment Activity comment: No driving, no signing legal documents, no playing on heavy machinery while on narcotics and pain meds. Follow Up/Referral: Follow up with the PCP in 1-2 weeks Follow up with Cardiology Dr. Montilla in 1-2 weeks Follow up with orthopedic spine surgery in one week Medications: As prescribed and reconciled New Medications: Apixaban Base (Eliquis) 5 Mg Tab 5 MG PO BID for 30 Days, #60 TAB Metoprolol Succinate (Metoprolol Succinate Er) 25 Mg Tab 1 TAB PO DAILY, #30 TAB 5 Refills Cyclobenzaprine HCl (Cyclobenzaprine Hydrochlo) 10 Mg Tab 10 MG PO TID for 30 Days, #90 TAB Hydrocodone-Acetaminophen (Hydrocodone Bitartrate/AC 10-325 mg) 1 Tab Tab 1 TAB PO Q4HP PRN for 7 Days, #35 TAB Continued Medications: Amlodipine Besylate (Amlodipine Besylate) 10 Mg Tab 10 MG PO DAILY, TAB Curcuma Longa (Turmeric) Extra (Turmeric) 500 Mg Cap 1500 MG OR BID, CAP Famotidine (Pepcid Tablet) 20 Mg Tb 20 MG GT DAILY, TAB Glipizide (Glipizide) 10 Mg Tab 10 MG PO BID, TAB Lisinopril (Lisinopril) 2.5 Mg Tab 1.5 MG PO DAILY, TAB Metformin Hydrochloride (Metformin Hcl) 500 Mg Tab 500 MG PO DAILY, TAB Sildenafil Citrate (Viagra) 100 Mg Tab 100 MG PO PRN, TAB Discontinued Medications: Meloxicam (Meloxicam) 15 Mg Tab 15 MG PO DAILY, TAB Discharge Statement: "Patient was advised to return to the ER or call 911 if any headaches, dizziness, shortness of breath, chest pain, abdominal pain, bleeding, fevers, or worsening of medical condition. Patient was counseled about treatment plan, medications, possible side effects, patientverbalized understanding. All questions were answered to the best of my ability. This discharge took greater then 30 minutes in planning, reviewing documentation, counseling the patient, and discussing with other team members." ASSESSMENT ASSESSMENT Assessment 79-year-old male with a known history of hypertension, diabetes mellitus type 2, GERD, chronic lumbar back pain is here for lumbar spine surgery. 1. AFib with RVR, currently rate controlled 2. Diabetes mellitus type 2 3. GERD 4. Lumbar radiculopathy status post L3-4-5 lumbar spinal canal decompression surgery 5. Hypertension Date of Service: Feb 08, 2025 Billing Provider: JUAN ANTONIO CROCKETT MD Common Visit Codes: NOT BILLABLE JUAN ANTONIO CROCKETT MD Feb 08, 2025 13:40
[2025-02-08 16:42] VITALS: BP 111/72; PULSE 73; RESP 18; TEMP 98; O2SAT 96
--- NOTE | 2025-02-08 22:55 | DVHPN2 ---
Progress Note - Dictate Date Seen: Feb 08, 2025 Medical Necessity Reason Pt with a Central, PICC or Fol: No Subjective Patient was seen and evaluated in follow up. Patient has no new complaints at this time. Patient denies any cardiac symptoms. Patient is cardiac stable for discharge. Telemetry reviewed. vital signs Vital Sign Date Time Temp Pulse Resp B/P (MAP) Pulse Ox O2 Delivery O2 Flow Rate FiO2 02/08/25 16:42 98.0 73 18 111/72 (85) 96 98.0 02/08/25 08:00 Room Air* 0 21 Total Intake and Output 02/07/25 02/07/25 02/08/25 15:00 23:00 07:00 Intake Total 680 ml Output Total 200 ml Balance 680 ml -200 ml medications Current Medications Medications Dose Ordered Sig/Tatum Route Start Time Stop Time Status Last Admin Dose Admin Ondansetron HCl 4 mg Q4HP PRN IV 02/03/25 17:00 02/04/25 05:38 4 MG Acetaminophen 650 mg Q6HP PRN PO 02/03/25 17:00 02/08/25 05:49 650 MG Cyclobenzaprine HCl 10 mg TID PO 02/03/25 22:00 02/08/25 05:49 10 MG Docusate Sodium 100 mg BID PO 02/03/25 22:00 02/08/25 08:39 100 MG Nitroglycerin 0.4 mg Q5MINP PRN SL 02/03/25 17:00 Morphine Sulfate 2 mg Q30M PRN IV 02/03/25 17:00 Famotidine 20 mg DAILY PO 02/04/25 10:00 02/08/25 08:38 20 MG Metformin HCl 500 mg DAILY PO 02/04/25 10:00 02/08/25 08:38 500 MG Throat Lozenges 1 daquan Q2HP PRN MT 02/03/25 22:15 Amlodipine Besylate 10 mg DAILY PO 02/05/25 10:00 02/08/25 08:37 10 MG Lisinopril 2.5 mg DAILY PO 02/05/25 10:00 02/08/25 08:38 2.5 MG Morphine Sulfate 2 mg Q4HP PRN IV 02/04/25 17:00 02/07/25 08:36 2 MG Diagnostic Test (Pha) 1 strip ACHS 02/04/25 17:00 02/08/25 11:30 1 STRIP Insulin Human Regular ACHS SC 02/04/25 17:00 02/08/25 12:11 3 UNITS Dextrose 50 ml UD PRN IV 02/04/25 13:00 Acetaminophen/ Hydrocodone Bitart 1 tab Q4HP PRN PO 02/04/25 13:45 02/08/25 00:38 1 TAB Metoprolol Tartrate 25 mg BID PO 02/05/25 22:00 02/08/25 08:37 25 MG Enoxaparin Sodium 60 mg Q12HR SC 02/07/25 22:00 02/08/25 08:39 60 MG objective GENERAL: Alert and oriented x 3. No acute distress. EYES: PERRL, EOMI. Anicteric. HENT: Moist mucous membranes. LUNGS: Clear to auscultation bilaterally. CARDIOVASCULAR: Irregular rate and rhythm. ABDOMEN: Soft, nontender and nondistended. EXTREMITIES: No edema. NEUROLOGIC: No focal neurological deficits. SKIN: Warm, dry. laboratory and microbiology Laboratory Tests 02/07/25 16:07 Test 02/07/25 16:07 Range/Units Serum Glucose 126 H 74-106 mg/dL Problem List Atrial fibrillation with a rapid ventricular response, rate now controlled, new onset. Hypertension. Hyperlipidemia. Type 2 diabetes mellitus. History of lung cancer status post radiation. History of bladder cancer status post chemotherapy. Lumbar spinal stenosis status post lumbar spinal decompression. Assessment/Plan Continued all current supportive medical care. Amlodipine. Lisinopril. Metoprolol. Nitro SL. DVT prophylactics. Morphine for pain management. Additional plan as per the hospital course. Plan discussed with: Patient YUN HAND MD Feb 08, 2025 18:21
--- NOTE | 2025-02-09 09:32 | ECG ---
[facility] Test Date: 2025-02-07 Test Time: 15:57:17 Pat Name: ALLIE STRATTON Department: Room: 0278T B Gender: M Parking Supervisor: ness abrams resource : [id number] Requested By: FLORENCIA GOYAL Order Number: [id number] Reading MD: Dash Michele Measurements Intervals [place] Rate: 100 P: 0 DC: 0 QRS: 23 QRSD: 99 T: 5 QT: 353 QTc: 456 Interpretive Statements Atrial flutter with predominant 3:1 AV block Inferior infarct, age indeterminate Electronically Signed On 02-11-2025 20:17:17 PDT by Dash Michele Please click the below link to view image of tracing.
== END 2025-02-08 17:52 | disposition home health service (06) | DRG 427 ==
LOC: SUR 10:01 → OVERFLOW 16:59 → TELE-WESTW 19:44
PROVIDERS: ADMIT Internal Medicine; ATTEND Internal Medicine
PROC: 0SG1071 Fusion of 2 or more Lumbar Vertebral Joints with Autologous Tissue Substitute, Posterior Approach, Posterior Column, Open Approach (ICD-10-PCS; 2025-02-03)
PROC: 01NB0ZZ Release Lumbar Nerve, Open Approach (ICD-10-PCS; 2025-02-03)
PROC: 00NY0ZZ Release Lumbar Spinal Cord, Open Approach (ICD-10-PCS; 2025-02-03)
PROC: 4A11X4G Monitoring of Peripheral Nervous Electrical Activity, Intraoperative, External Approach (ICD-10-PCS; 2025-02-03)
PROC: 0SG00AJ Fusion of Lumbar Vertebral Joint with Interbody Fusion Device, Posterior Approach, Anterior Column, Open Approach (ICD-10-PCS; principal; 2025-02-03 13:28)
DX: M48.062 Spinal stenosis, lumbar region with neurogenic claudication (principal); I48.92 Unspecified atrial flutter; M41.56 Other secondary scoliosis, lumbar region; G89.18 Other acute postprocedural pain; K21.9 Gastro-esophageal reflux disease without esophagitis; M51.16 Intervertebral disc disorders with radiculopathy, lumbar region; I48.91 Unspecified atrial fibrillation; I10 Essential (primary) hypertension; E11.9 Type 2 diabetes mellitus without complications; G89.29 Other chronic pain; E78.5 Hyperlipidemia, unspecified; M43.16 Spondylolisthesis, lumbar region; Z79.84 Long term (current) use of oral hypoglycemic drugs; Z79.899 Other long term (current) drug therapy; Z85.51 Personal history of malignant neoplasm of bladder; Z92.21 Personal history of antineoplastic chemotherapy; Z85.118 Personal history of other malignant neoplasm of bronchus and lung; Z92.3 Personal history of irradiation
CPT/HCPCS: 36415; 72100; 76000; 80048; 80061; 82962; 83036; 83605; 83735; 84443; 85025; 86850; 86900; 86901; 93005; 93306; 97110; 97116; 97163; 97530; A4344; G0378; J1100; J1815; J1956; J2250; J2405; J2704